=== PATIENT | female | born 1950 | race Caucasian/White ===

== ENCOUNTER → 2019-01-23 15:04 | Outpatient (CLI) | payer MEDICARE, SELFPAY ==
--- NOTE | 2019-01-23 | DI.MG.S_ITS ---
BILATERAL DIGITAL SCREENING MAMMOGRAM 3D/2D WITH CAD WITH AUGMENTATION: 01/23/2019 CLINICAL: Patient presents for routine screening. S/P bilateral augmentation. Comparison is made to exams dated: 11/09/2017 mammogram, 12/03/2014 mammogram - [facility], and 12/21/2007 mammogram - [facility]. There are scattered fibroglandular elements in both breasts. Current study was also evaluated with a Computer Aided Detection (CAD) system. Bilateral breast implants are stable. No significant masses, calcifications, or other findings are seen in either breast. There has been no significant interval change. IMPRESSION: NEGATIVE There is no mammographic evidence of malignancy. A 1 year screening mammogram is recommended. This exam was interpreted at Station ID: [id number]. NOTE: For mammograms, a report in lay terms will be sent to the patient. Approximately 15% of breast malignancies will not be visualized mammographically. In the management of a palpable breast mass, a negative mammogram must not discourage biopsy of a clinically suspicious lesion. Electronically Signed By: Elvira ng/isaiah:01/23/2019 16:18:47 letter sent: Normal Exam ACR BI-RADS Category 1: Negative [id number]
== END ==
PROVIDERS: PCP Family Medicine; Visit Provider Family Medicine
DX: Z12.31 Encounter for screening mammogram for malignant neoplasm of breast (principal); Z98.82 Breast implant status
CPT/HCPCS: 77063; 77067

== ENCOUNTER → 2019-04-03 12:07 | Outpatient (CLI) | payer MEDICARE, SELFPAY ==
--- NOTE | 2019-04-03 12:15 | DI.CT.S_ITS ---
PROCEDURE: CT LUMBAR SPINE WO CON INDICATIONS: Low back pain TECHNIQUE: Noncontrast 3 mm thick sections acquired from the T12 level to the sacrum. Sagittal and coronal reformats were constructed. For radiation dose reduction, the following was used: automated exposure control. Metal suppressing reconstructions were performed. COMPARISON: [facility], , L-SPINE 4V PLUS BENDING, 04/25/2011, 10:23. FINDINGS: Image quality: Diagnostic. Bones: No acute vertebral body compression fractures. No suspicious lytic or blastic bony lesions. Central spinal caliber is of normal overall caliber. No pars defects. Mild levoconvex scoliotic curvature is noted. There is grade 1 retrolisthesis seen at the L2-L3 level. Postoperative changes are seen, with bilateral pedicle screws at the L2, L3, and L4 levels. Anterior fixation hardware can also be seen at L3-L4 and L4-L5. Disc spacers are seen at L3-L4 and L4-L5. There has been removal of portions of the posterior elements. T12-L1: Normal. L1-L2: Mild to moderate loss of disc height is seen. Endplate irregularity is seen. Moderate bilateral neural foraminal narrowing is seen, left worse than right. Mild central canal narrowing is seen. L2-L3: There is moderate to severe loss of disc height is seen. Prominent endplate irregularity and sclerosis can be seen. At least moderate disc bulge is seen, which is eccentric to the left. There is at least moderate bilateral neural foraminal narrowing seen. Moderate central canal narrowing is seen. L3-L4: Postoperative changes are seen this level. No significant neural foraminal or central canal narrowing can be seen. L4-L5: There are postoperative changes seen at this level. No significant neural foraminal or central canal narrowing can be seen. L5-S1: The disc height is well-preserved. Iswq-sj-ferafver facet hypertrophy is seen. Mild generalized disc bulge is seen. Xejg-ls-ivijoqmd bilateral neural foraminal narrowing is seen. No significant central canal narrowing is seen. Soft tissues: No retroperitoneal masses or hematomas. Visualized aorta is normal in caliber. Diverticulosis is seen, without findings of active diverticulitis. IMPRESSION: Unremarkable postoperative change L3-L5. Prominent focal degenerative change is seen at L2-L3. Dictated by: Addison Naylor M.D. on 04/03/2019 at 13:28 Approved by: Addison Naylor M.D. on 04/03/2019 at 13:34
== END ==
PROVIDERS: PCP Family Medicine; Visit Provider Orthopaedic Surgery Orthopaedic Surgery of the Spine
DX: M54.5 Low back pain (principal); M47.816 Spondylosis without myelopathy or radiculopathy, lumbar region
CPT/HCPCS: 72131

== ENCOUNTER → 2019-04-29 16:05 | Outpatient (CLI) | payer MEDICARE, SELFPAY ==
--- NOTE | 2019-04-29 | DI.US.S_ITS ---
PROCEDURE: US ABDOMEN COMPLETE INDICATIONS: Right upper quadrant pain TECHNIQUE: Real-time scanning was performed of the abdominal and retroperitoneal organs, with image documentation. COMPARISON: None. FINDINGS: Liver: Liver is normal in size and homogeneous in echotexture. Hepatic cyst measuring 14 mm. Gallbladder: No gallstones identified. Normal gallbladder wall. No pericholecystic fluid. Negative sonographic Bosch sign. Biliary ducts: Intrahepatic bile ducts are non-dilated. Extrahepatic bile duct caliber measures 7.2 mm. Normal is 6-7 mm or less in diameter, or 10 mm or less post-cholecystectomy. Pancreas: Visualized portions of the pancreas are sonographically normal. Spleen: Spleen is normal in size and homogeneous in echotexture. Kidneys: Kidneys are normal in size and echotexture. Right kidney measures in 10.0 cm long; left kidney measures 8.4 cm long. No hydronephrosis or nephrolithiasis. No solid masses. Aorta: Visualized aorta is normal in caliber at less than 3 cm. Iliacs: Proximal common iliac arteries are normal in caliber at less than 2.5 cm. IVC: Intrahepatic inferior vena cava is patent. Miscellaneous: No free abdominal fluid. IMPRESSION: No source for right upper quadrant pain identified. Dictated by: Frankie JAVIER Interpreted: Antoinette Anderson MD on 04/29/2019 at 16:57 Approved by: Antoinette Anderson MD, PhD on 04/29/2019 at 17:46
== END ==
PROVIDERS: Family Provider Family Medicine; PCP Family Medicine; Visit Provider Physician Assistant
DX: R10.11 Right upper quadrant pain (principal); R19.7 Diarrhea, unspecified
CPT/HCPCS: 76700

== ENCOUNTER → 2019-05-03 13:22 | Outpatient (CLI) | payer MEDICARE, OTHER, SELFPAY | PROVIDERS: Family Provider Family Medicine; PCP Family Medicine; Visit Provider Physician Assistant | DX: R30.0 Dysuria (principal) | CPT/HCPCS: 87077; 87086; 87186 ==

== ENCOUNTER → 2019-08-08 11:48 | Outpatient (CLI) | payer MEDICARE, OTHER, SELFPAY ==
[2019-08-08 12:44] LABS: BUN Creatinine Ratio 17.8 (6-22); Blood Urea Nitrogen 16 mg/dL (7-17); Carbon Dioxide 26 mmol/L (22-32); Chloride 103 mmol/L (98-107); Estimated Glomerular Filt Rate > 60.0 mL/min (>60); Glucose 103 mg/dL (80-110); HEMOLYSIS < 15 (0-50); Potassium 4.4 mmol/L (3.4-5.1); Sodium 141 mmol/L (137-145)
[2019-08-08 15:00] LABS: Vitamin D 25 Hydroxy (D3) 61.9 ng/mL (30.0-100.0)
== END ==
PROVIDERS: PCP Student in an Organized Health Care Education/Training Program; Visit Provider Student in an Organized Health Care Education/Training Program
DX: E55.9 Vitamin D deficiency, unspecified (principal); K52.9 Noninfective gastroenteritis and colitis, unspecified; M54.16 Radiculopathy, lumbar region; Z79.1 Long term (current) use of non-steroidal anti-inflammatories (NSAID); Z79.52 Long term (current) use of systemic steroids; G62.9 Polyneuropathy, unspecified; R21 Rash and other nonspecific skin eruption
CPT/HCPCS: 36415; 80048; 82306; 86787

== ENCOUNTER → 2019-09-09 08:10 | Outpatient (CLI) | payer MEDICARE, SELFPAY ==
--- NOTE | 2019-09-09 08:12 | DI.ECHO.S_ITS ---
[facility]---------+ [facility] +---------+ : : [address] : [address] : : : : [id number] : : : : Phone: [phone]+ Echocardiogram Report + + :Name: BERNABE MOORE Study Date: 09/09/2019 Height: 65 in : :[facility] Weight: 165 lb : : Gender: Female BSA: 1.8 m2 : :: 1950 Age: 69 yrs BP: 124/80 mmHg: :Reason For Study: Mitral Valve- Regurgitation : : Performed By: Zakia Cavanaugh : :Referring: NEVEAH ZAVALA : + + Interpretation Summary Normal left ventricle size with ejection fraction 60-65%. No valvular abnormality. Large circumferential pericardial effusion. There are no echocardiographic indications of cardiac tamponade. Procedure: A two-dimensional transthoracic echocardiogram with color flow and Doppler was performed. The study quality was technically adequate. There is no prior echocardiogram noted for this patient. The patient was in normal sinus rhythm during the exam. The patient had frequent PVCs during the exam. Left Ventricle: The left ventricle is normal in size and wall thickness. The ejection fraction is estimated to be 60-65%. There are no focal wall motion abnormalities. Right Ventricle: The right ventricle is normal in size and function. Atria: Both atria are normal in size. There is no Doppler evidence for an interatrial shunt. Mitral Valve: The mitral valve is normal in structure and function. There is trace mitral regurgitation. Aortic Valve: The aortic valve is not well visualized. The aortic valve is trileaflet. The aortic valve opens well. No aortic regurgitation is present. Tricuspid Valve: The tricuspid valve is normal in structure and function. There is a trace or physiologic amount of tricuspid regurgitation. The right ventricular systolic pressure is estimated to be at least 16 mmHg based on an estimated right atrial pressure of 3 mm Hg. Pulmonic Valve: The pulmonic valve is not well visualized. There is no pulmonic valvular regurgitation. Great Vessels: The aortic root is not well visualized. The ascending aorta could not be visualized. The IVC is of normal diameter and collapses greater than 50% with a sniff. This suggests a low right atrial pressure of 3 mm Hg. Pericardium/ Pleura There is a large pericardial effusion that is circumferential. There are no echocardiographic indications of cardiac tamponade. MMode/2D Measurements & Calculations LVIDd: 4.6 cm Ao Arch Diam (Prox Trans): 2.3 cm LVIDs: 2.4 cm FS: 46.3 % IVSd: 0.70 cm LVPWd: 0.66 cm LV arrieta. diameter/BSA (cm/m^2): 2.5 LV sys. diameter/BSA (cm/m^2): 1.3 LA A2 area: 16.8 cm2 RA long axis: 4.5 cm LA A4 area: 15.1 cm2 RA area: 12.5 cm2 LA length (vol): 4.7 cm RA vol: 29.6 ml LA vol: 45.5 ml RA : 16.2 ml/m2 LA vol index: 25.0 ml/m2 IVC diam: 1.5 cm RVD1 (basal): 3.2 cm RVD2 (mid): 2.9 cm TAPSE: 2.4 cm Doppler Measurements & Calculations Ao V2 max: 119.9 cm/sec LVOT Max Zen: 100.0 cm/sec Ao V2 mean: 87.0 cm/sec LV V1 max P.0 mmHg Ao max P.7 mmHg LV V1 VTI: 25.7 cm Ao mean P.3 mmHg sev ratio: 0.96 Ao V2 VTI: 26.9 cm MV E max zen: 89.4 cm/sec TR max zen: 185.3 cm/sec MV A max zen: 86.8 cm/sec TR max P.7 mmHg MV E/A: 1.0 PA V2 max: 99.4 cm/sec MV dec time: 0.20 sec PA V2 mean: 71.1 cm/sec MV P1/2t: 59.0 msec PA mean P.2 mmHg PA pr(Accel): 4.3 mmHg PA Accel Time: 0.18 sec MV P1/2t max zen: 89.3 cm/sec MVA(P1/2t): 3.7 cm2 Electronically signed by: Scarlett Haynes on Reading Physician:09/09/2019 05:41 PM
--- NOTE | 2019-09-09 09:20 | PM.TREADMILL ---
Cardiac Stress Test Report Referral & Results Date Patient Seen: 09/09/19 Requesting provider: Faisal Pond Indication: Chest discomfort Rest ECG: Unremarkable although frequent PVCs Procedure Note: Today following both written and verbal informed consent, the patient was exercised according to a standard [facility] protocol. The patient exercised for a total of 8 minutes 41 seconds achieving a maximum heart rate of 169. Patient's maximum systolic blood pressure was 188. This was an estimated 10.1 MET's. Patient did have frequent PVCs as above but these disappeared once heart rate head about 130 and higher. They return when heart rate dipped below 130 as well in recovery No ST-T segment changes identified Somewhat tachycardic quickly but overall normal heart rate and blood pressure response Functional aerobic impairment well off the scale. I estimate her exercise capacity to be equal that of an active 44-year-old. Impression: No ECG evidence of ischemia Amazing exercise capacity Please note: Actual ECG tracings can be found in the PACS system.
== END ==
PROVIDERS: PCP Student in an Organized Health Care Education/Training Program; Referring Provider Student in an Organized Health Care Education/Training Program; Visit Provider Student in an Organized Health Care Education/Training Program
DX: I34.1 Nonrheumatic mitral (valve) prolapse (principal); I20.8 Other forms of angina pectoris; I31.3 Pericardial effusion (noninflammatory); R07.89 Other chest pain
CPT/HCPCS: 93016; 93017; 93018; 93306

== ENCOUNTER → 2019-09-10 15:15 | Outpatient (CLI) | payer MEDICARE, SELFPAY ==
--- NOTE | 2019-09-10 15:19 | DI.RAD.S_ITS ---
PROCEDURE: XR CHEST 2V INDICATIONS: Eval pericardial effusion seen on echo TECHNIQUE: 2 views of the chest were acquired. COMPARISON: None. FINDINGS: Surgical changes and devices: Imaged lumbar spinal fusion hardware. Lungs and pleura: Lungs are clear. No pleural effusions or pneumothorax. Mediastinum: Mediastinal contours are normal. Heart size is normal. Bones and chest wall: No suspicious bony abnormalities. Soft tissues appear unremarkable. IMPRESSION: Chest without acute cardiopulmonary abnormalities. Dictated by: Usman Titus M.D. on 09/10/2019 at 17:24 Approved by: Usman Titus M.D. on 09/10/2019 at 17:24
[2019-09-10 16:01] LABS: Add Manual Diff / Slide Review NO; Basophils Absolute Auto 0 /uL (0-100); Basophils Percent Auto 0.7 % (0-2); Eosinophils Absolute Auto 0 /uL (0-450); Hematocrit 44.9 % (36-46); Hemoglobin 15.4 g/dL (12.0-16.0); Lymphocytes Absolute Auto 1000 /uL (1100-4500); Lymphocytes Percent Auto 21.5 % (25-40); Mean Corpuscular HGB Conc 34.4 % (30-36); Mean Corpuscular Hemoglobin 32.2 PG (26-34); Mean Corpuscular Volume 93.5 fL (80-100); Monocytes Absolute Auto 400 /uL (0-900); Monocytes Percent Auto 9.5 % (3-14); Neutrophils Absolute Auto 3100 /uL (1500-7000); Neutrophils Percent Auto 67.3 % (50-75); Platelet Count 212 X10^3/uL (150-400); Red Cell Distribution Width 13.5 % (11.6-14.8); White Blood Cell Count 4.6 X10^3/uL (4.5-11.0)
[2019-09-10 16:17] LABS: Erythrocyte Sedimentation Rate 4 MM/HR (0-20)
[2019-09-10 16:40] LABS: C-Reactive Protein Quant < 0.5 mg/dL (<1.0)
[2019-09-10 16:45] LABS: TSH w/ Reflex to FT4 1.86 uIU/mL (0.47-4.68)
[2019-09-13 16:12] LABS: ANA Screen, IFA NEGATIVE (NEGATIVE)
== END ==
PROVIDERS: PCP Student in an Organized Health Care Education/Training Program; Referring Provider Student in an Organized Health Care Education/Training Program; Visit Provider Student in an Organized Health Care Education/Training Program
DX: I31.3 Pericardial effusion (noninflammatory) (principal); K52.9 Noninfective gastroenteritis and colitis, unspecified
CPT/HCPCS: 36415; 71046; 84443; 85025; 85651; 86038; 86140

== ENCOUNTER → 2019-09-12 17:37 | Outpatient (CLI) | payer MEDICARE, OTHER, SELFPAY ==
[2019-09-12 18:26] LABS: Add Manual Diff / Slide Review NO; Basophils Absolute Auto 0 /uL (0-100); Basophils Percent Auto 0.8 % (0-2); Eosinophils Absolute Auto 100 /uL (0-450); Eosinophils Percent Auto 1.5 % (2-4); Hematocrit 47.5 % (36-46); Hemoglobin 16.1 g/dL (12.0-16.0); Lymphocytes Absolute Auto 1100 /uL (1100-4500); Lymphocytes Percent Auto 23.7 % (25-40); Mean Corpuscular HGB Conc 33.8 % (30-36); Mean Corpuscular Hemoglobin 31.8 PG (26-34); Mean Corpuscular Volume 94.1 fL (80-100); Monocytes Absolute Auto 500 /uL (0-900); Monocytes Percent Auto 9.9 % (3-14); Neutrophils Absolute Auto 3100 /uL (1500-7000); Neutrophils Percent Auto 64.1 % (50-75); Platelet Count 225 X10^3/uL (150-400); Red Blood Cell Count 5.04 X10^6/uL (4.0-5.2); Red Cell Distribution Width 13.7 % (11.6-14.8); White Blood Cell Count 4.8 X10^3/uL (4.5-11.0)
[2019-09-12 19:01] LABS: Erythrocyte Sedimentation Rate 2 MM/HR (0-20)
[2019-09-12 19:29] LABS: C-Reactive Protein Quant < 0.5 mg/dL (<1.0)
== END ==
PROVIDERS: PCP Student in an Organized Health Care Education/Training Program; Referring Provider Internal Medicine Cardiovascular Disease; Visit Provider Internal Medicine Cardiovascular Disease
DX: I31.3 Pericardial effusion (noninflammatory) (principal); J06.9 Acute upper respiratory infection, unspecified
CPT/HCPCS: 36415; 85025; 85651; 86140

== ENCOUNTER → 2019-11-22 09:00 | Outpatient (CLI) | payer MEDICARE, SELFPAY ==
--- NOTE | 2019-11-22 | DI.ECHO.S_ITS ---
[facility] +---------+ : : [address] : : : [address] : : : : [place], : : : : [place] [address] : : : : Phone: [phone] + [facility] Echocardiogram Report + + :Name: BERNABE MOORE Study Date: 11/22/2019 Height: 65 in : :[facility] Weight: 150 lb : : Gender: Female BSA: 1.8 m2 : :: 1950 Age: 69 yrs BP: 112/80 mmHg: :Reason For Study: Pericardial Effusion / Pre-op : : Performed By: Victoria Page : :Referring: UNSPECIFIED : + + Interpretation Summary 1) Normal left ventricular size, thickness, and systolic function (EF about 55%). 2) Normal right ventricular size and function. 3) No significant valvular abnormalities. 4) There is a large pericardial effusion that is circumferential. No obvious Echo and doppler evidence of tamponade. 5) Compared to the Echo done 10/21/2019, no significant change. Procedure: A two-dimensional transthoracic echocardiogram with color flow and Doppler was performed. The study quality was technically adequate. Comparison is made with the echocardiogram of 10/21/2019. The heart rate ranged between 58-86 bpm during the study. Left Ventricle: There is normal left ventricular wall thickness. The left ventricle is normal in size. Left ventricular ejection fraction is estimated to be 55 +/- 5%. There are no focal wall motion abnormalities. Right Ventricle: The right ventricle is normal in size and function. Atria: Both atria are mildly dilated. There is no Doppler evidence for an interatrial shunt. Mitral Valve: The mitral valve leaflets appear mildly thickened, but open well. There is trace mitral regurgitation. Aortic Valve: The aortic valve is trileaflet. The aortic valve opens well. No aortic regurgitation is present. Tricuspid Valve: The tricuspid valve is normal in structure and function. There is a trace or physiologic amount of tricuspid regurgitation. Pulmonary artery pressures cannot be estimated because of the lack of a measurable TR jet velocity. Pulmonic Valve: The pulmonic valve is not well seen, but is grossly normal. Great Vessels: The aortic root is normal size. The ascending aorta is normal in size. The pulmonary artery is normal size. The IVC is dilated (diameter is greater than 2.1 cm) yet it collapses greater than 50% with a sniff. This suggests a right atrial pressure of 8 mm Hg. Pericardium/ Pleura There is a large pericardial effusion that is circumferential. There is no pleural effusion. MMode/2D Measurements & Calculations LVIDd: 5.3 cm LVOT diam: 2.0 cm LVIDs: 3.5 cm Ao root diam: 3.4 cm IVSd: 0.56 cm asc Aorta Diam: 2.6 cm LVPWd: 0.71 cm LV arrieta. diameter/BSA (cm/m^2): 3.0 LV sys. diameter/BSA (cm/m^2): 2.0 FS: 34.7 % LA A2 area: 21.1 cm2 RA long axis: 5.1 cm LA A4 area: 20.1 cm2 RA area: 19.3 cm2 LA length (vol): 5.3 cm RA vol: 61.6 ml LA vol: 67.3 ml RA : 35.2 ml/m2 LA vol index: 38.4 ml/m2 RVD1 (basal): 3.6 cm IVC diam: 2.4 cm TAPSE: 1.8 cm Doppler Measurements & Calculations Ao V2 max: 134.6 cm/sec LVOT Max Zen: 101.3 cm/sec Ao V2 mean: 92.5 cm/sec LV V1 max P.1 mmHg Ao V2 VTI: 29.3 cm LV V1 VTI: 21.1 cm Ao max P.3 mmHg Ao mean P.8 mmHg BETSY(I,D): 2.3 cm2 MV E max zen: 67.1 cm/sec BETSY(V,D): 2.4 cm2 MV A max zen: 77.6 cm/sec BETSY indexed to BSA (cm^2/m^2): 1.3 MV E/A: 0.86 sev ratio: 0.72 MV dec time: 0.17 sec PA V2 max: 81.6 cm/sec PA V2 mean: 60.1 cm/sec PA mean P.6 mmHg PA pr(Accel): 18.5 mmHg SV(LVOT): 68.6 ml Reading Physician:12:12 PM
== END ==
PROVIDERS: PCP Student in an Organized Health Care Education/Training Program; Referring Provider Specialist; Visit Provider Specialist
DX: I31.3 Pericardial effusion (noninflammatory) (principal)
CPT/HCPCS: 93306

== ENCOUNTER → 2020-02-14 13:58 | Outpatient (CLI) | payer MEDICARE, SELFPAY ==
--- NOTE | 2020-02-14 14:01 | DI.RAD.S_ITS ---
This blank DEXA report has been sent in error by the PACS system. The correct and complete report will be forthcoming in 1-2 days. Thank you for your patience and understanding. COMPARISON: None. Dictated by: Víctor Whalen M.D. on 02/14/2020 at 14:46 Approved by: Víctor Whalen M.D. on 02/14/2020 at 14:46
== END ==
PROVIDERS: PCP Student in an Organized Health Care Education/Training Program; Referring Provider Student in an Organized Health Care Education/Training Program; Visit Provider Student in an Organized Health Care Education/Training Program
DX: M85.832 Other specified disorders of bone density and structure, left forearm (principal); Z78.0 Asymptomatic menopausal state; K92.9 Disease of digestive system, unspecified; E55.9 Vitamin D deficiency, unspecified
CPT/HCPCS: 77080

== ENCOUNTER → 2020-11-20 06:43 | Outpatient (CLI) | payer MEDICARE, SELFPAY ==
--- NOTE | 2020-11-20 | DI.MRI.S_ITS ---
PROCEDURE: MR HIP RT WO CON INDICATIONS: Arthrodesis status TECHNIQUE: Noncontrast coronal T1 spin echo and STIR through the bony pelvis. Coronal and axial T2 fast spin echo with fat saturation, sagittal T1 spin echo, and oblique axial T2 fast spin echo with fat saturation through the hip. COMPARISON: None. FINDINGS: Image quality: Excellent. Bones and joints: Asymmetric moderate right hip joint osteoarthritic changes are seen with joint space narrowing, subchondral sclerosis and marginal osteophyte formation. Prominence of right femoral head neck junction is seen which can be seen associated with CAM type femoral acetabular impingement. No fracture or dislocation. No evidence of avascular necrosis of femoral head. Moderate right hip joint effusion is noted. No gross intra-articular loose body. Tendons and ligaments: There is suggestion of sprain/low-grade partial-thickness tear involving lateral portion of right obturator externus muscle at the level of right femoral neck/lesser trochanter. The gluteus medius and minimus tendinosis is seen at their insertion on greater trochanter., without associated muscle atrophy. The nearby proximal iliotibial band also appears intact. The iliopsoas tendon appears intact, without adjacent bursal fluid collections or evidence for impingement syndrome. The origin of the hamstring tendon is intact at the ischial tuberosity, as well as the associated sacrotuberous ligament. The straight and reflected heads of the rectus femoris muscle origin appear intact, as well as the conjoint tendon. The ligamentum teres appears intact where visualized. Labrum and cartilage: Thinning of articulating cartilages of femoral head is seen. Contour irregularity involving superior anterior right hip labrum is seen with adjacent subcortical cyst formation suggestive of superior anterior right hip labral tear. The alpha angle of the femur is within normal limits at less than 55 degrees. Soft tissues: Visualized muscles demonstrate normal bulk and internal signal. Quadratus femoris muscle demonstrates no internal edema to suggest ischiofemoral impingement. The proximal sciatic neurovascular bundle appears normal adjacent to the hamstring tendons. No free pelvic fluid. Bladder wall thickness is normal. Genitourinary structures and bowel loops appear normal where visualized. IMPRESSION: 1. Asymmetric right worse than left bilateral hip joint osteoarthritis. No fracture or dislocation. No evidence of avascular necrosis of femoral head. Moderate amount of joint fluid, no gross loose body. 2. Prominence of right femoral head neck junction which can be seen associated with CAM type femoral acetabular impingement. 3. Suggestion of superior anterior right hip labral tear. 4. Tendinosis and low-grade partial-thickness tear involving right gluteus medius and minimus tendons at their insertion on greater trochanter. Muscle strain/low-grade partial-thickness tear involving right obturator externus muscle lateral portion near femoral neck/lesser trochanter. Dictated by: Derek Ruiz M.D. on 11/20/2020 at 10:04 Approved by: Derek Ruiz M.D. on 11/20/2020 at 10:46
== END ==
PROVIDERS: PCP Student in an Organized Health Care Education/Training Program; Referring Provider Orthopaedic Surgery; Visit Provider Orthopaedic Surgery
DX: M54.16 Radiculopathy, lumbar region (principal); S39.013A Strain of muscle, fascia and tendon of pelvis, initial encounter; M25.551 Pain in right hip; Z98.1 Arthrodesis status; M16.0 Bilateral primary osteoarthritis of hip
CPT/HCPCS: 73721

== ENCOUNTER → 2020-11-23 08:13 | Outpatient (CLI) | payer MEDICARE, SELFPAY ==
[2020-11-23 09:01] LABS: Prothrombin Time 11.3 SECONDS (10.1-12.7)
[2020-11-23 09:40] LABS: Platelet Count 260 X10^3/uL (150-400)
== END ==
PROVIDERS: PCP Student in an Organized Health Care Education/Training Program; Referring Provider Orthopaedic Surgery; Visit Provider Orthopaedic Surgery
DX: Z01.810 Encounter for preprocedural cardiovascular examination (principal)
CPT/HCPCS: 36415; 85049; 85610

== ENCOUNTER → 2020-11-30 08:04 | Outpatient (CLI) | payer MEDICARE, SELFPAY ==
[2020-11-30 09:36] VITALS: BP 133/61; PULSE 78; RESP 18; O2SAT 100
[2020-11-30 09:41] VITALS: BP 121/58; PULSE 73; RESP 18; O2SAT 99
[2020-11-30 09:56] VITALS: BP 109/55; PULSE 77; RESP 18; O2SAT 99
[2020-11-30 10:04] VITALS: BP 119/61; RESP 20; O2SAT 98
--- NOTE | 2020-11-30 10:05 | DI.CT.S_ITS ---
PROCEDURE: CT LUMBAR SPINE W CON INDICATIONS: lower back pain TECHNIQUE: After the intrathecal administration of 10 mL intrathecal contrast, 3 mm thick sections acquired from T12 to the sacrum. Sagittal and coronal reformats were then constructed. For radiation dose reduction, the following was used: automated exposure control. COMPARISON: [facility], CT, CT LUMBAR SPINE WO CON, 04/03/2019, 12:16. FINDINGS: Image quality: Excellent. Bones: No fracture identified. Multilevel spondylosis/endplate changes. Diffuse facet arthropathy. Postsurgical changes related to posterior spinal fixation from L3-L4 with pedicle screws and paraspinal rods. Posterior decompression at L4-L5 from left-sided laminotomy. There is also interbody cage grafts seen at L3-L4 and L4-L5, and anterior retaining plate and screws. 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 The appearance is unchanged. Soft tissues: No retroperitoneal masses. Visualized aorta demonstrates normal caliber. T12-L1: Normal appearance. L1-L2: Mild canal narrowing. Lateral recesses appear grossly patent. Mild to moderate bilateral foraminal narrowing. This appears unchanged. L2-L3: Mild canal narrowing. Partial effacement of both lateral recesses with bilaterally symmetric appearance. Mild bilateral foraminal narrowing, with unchanged appearance. L3-L4: No canal stenosis. Lateral recesses appear grossly patent. No definite foraminal stenoses. L4-L5: No residual canal stenosis. Lateral recesses appear patent. Mild bilateral foraminal narrowing, unchanged L5-S1: Minimal canal narrowing. Partial effacement of both lateral recesses with bilaterally symmetric appearance. No foraminal stenosis. Miscellaneous: Nerve roots appear unremarkable throughout. No nerve root clumping to suggest arachnoiditis. IMPRESSION: Postsurgical and chronic spondylitic changes as above. Overall, no definite interval progression since prior study dated 04/03/19 although mildly suboptimal comparison given exam technique differences (no intrathecal contrast on the prior study). Of note, severe disc degeneration seen at the superior unfused segment of L2-L3, as before. No high-grade residual canal stenosis. Diffuse mild to moderate bilateral foraminal narrowing as detailed above by spinal level. Dictated by: Wilmer Montero M.D. on 11/30/2020 at 11:12 Approved by: Wilmer Montero M.D. on 11/30/2020 at 11:41
[2020-11-30 10:09] VITALS: BP 128/62; PULSE 83; RESP 20; O2SAT 97
== END ==
PROVIDERS: PCP Student in an Organized Health Care Education/Training Program; Referring Provider Orthopaedic Surgery; Visit Provider Orthopaedic Surgery
DX: M54.5 Low back pain; M51.36 Other intervertebral disc degeneration, lumbar region; M48.061 Spinal stenosis, lumbar region without neurogenic claudication; M47.816 Spondylosis without myelopathy or radiculopathy, lumbar region; Z98.1 Arthrodesis status
CPT/HCPCS: 72132

== ENCOUNTER 2020-11-30 08:07 | Outpatient (CLI) | payer MEDICARE, SELFPAY ==
--- NOTE | 2020-11-30 | DI.RAD.S_ITS ---
PROCEDURE: FL INJECT SPINE FOR CT MYELO INDICATIONS: myelogram COMPARISON: None. TECHNIQUE: The indications, alternatives, benefits, risks and complications of the procedure were explained to the patient. Written informed consent was obtained and placed in the chart. The patient was placed in a prone position on the fluoroscopy table, and a level was chosen for percutaneous access under fluoroscopic guidance. The skin was prepped and draped in a sterile fashion. After local anaesthetic, a spinal needle was then used to enter the intrathecal space, with return of clear cerebrospinal fluid. 9 mL of Isovue M-300 were administered intrathecally under fluoroscopic visualization. The needle was then withdrawn, and a bandage applied to the puncture site. Fluoroscopic spot films were then acquired in various positions. FINDINGS: Standing frontal, lateral, and oblique views demonstrate no significant central canal stenoses. Access level: L4-L5 Medications: 1% lidocaine for local anaesthesia. Complications: None. Patient was transferred to CT for subsequent CT myelogram. IMPRESSION: Successful fluoroscopically guided administration of iodinated contrast into the lumbar spine central canal for CT myelogram. Dictated by: Wilmer Montero M.D. on 11/30/2020 at 12:58 Approved by: Wilemr Montero M.D. on 11/30/2020 at 12:58
[2020-11-30 08:41] VITALS: BMI 23.3
[2020-11-30 09:25] LABS: Add Manual Diff / Slide Review NO; Basophils Absolute Auto 0 /uL (0-100); Basophils Percent Auto 0.3 % (0-2); Eosinophils Absolute Auto 100 /uL (0-450); Eosinophils Percent Auto 1.9 % (2-4); Hematocrit 44.2 % (36-46); Hemoglobin 15.3 g/dL (12.0-16.0); Lymphocytes Absolute Auto 1000 /uL (1100-4500); Lymphocytes Percent Auto 23.4 % (25-40); Mean Corpuscular HGB Conc 34.6 % (30-36); Mean Corpuscular Hemoglobin 32.4 PG (26-34); Mean Corpuscular Volume 93.6 fL (80-100); Monocytes Absolute Auto 500 /uL (0-900); Monocytes Percent Auto 11.9 % (3-14); Neutrophils Absolute Auto 2500 /uL (1500-7000); Neutrophils Percent Auto 62.5 % (50-75); Platelet Count 202 X10^3/uL (150-400); Red Blood Cell Count 4.72 X10^6/uL (4.0-5.2); Red Cell Distribution Width 14.2 % (11.6-14.8); White Blood Cell Count 4.1 X10^3/uL (4.5-11.0)
[2020-11-30 10:19] LABS: Prothrombin Time 11.7 SECONDS (10.1-12.7)
[2020-11-30 11:05] VITALS: BP 113/60; PULSE 65; RESP 14; TEMP 37.4; O2SAT 99
[2020-11-30 11:35] VITALS: BP 120/77; PULSE 68; RESP 14; TEMP 36.7; O2SAT 98
[2020-11-30 12:05] VITALS: BP 120/72; PULSE 62; RESP 14; TEMP 37.1; O2SAT 99
[2020-11-30 13:59] VITALS: BP 127/70; PULSE 58; RESP 13; TEMP 36.3; O2SAT 98
== END 2020-11-30 14:08 | disposition home or self-care (01) ==
PROVIDERS: PCP Student in an Organized Health Care Education/Training Program; Referring Provider Orthopaedic Surgery; Visit Provider Orthopaedic Surgery
DX: M54.5 Low back pain (principal); M25.551 Pain in right hip; M54.16 Radiculopathy, lumbar region; M51.36 Other intervertebral disc degeneration, lumbar region; M48.061 Spinal stenosis, lumbar region without neurogenic claudication; M47.816 Spondylosis without myelopathy or radiculopathy, lumbar region; Z98.1 Arthrodesis status; Z01.810 Encounter for preprocedural cardiovascular examination
CPT/HCPCS: 36415; 62284; 72132; 77003; 85025; 85610

== ENCOUNTER → 2021-01-27 16:06 | Outpatient (CLI) | payer MEDICARE, SELFPAY ==
--- NOTE | 2021-01-27 | DI.MRI.S_ITS ---
PROCEDURE: MR SHOULDER LT WO CON INDICATIONS: LEFT SHOULDER TENDINITIS, PAIN TECHNIQUE: Noncontrast oblique coronal T2 fast spin echo with fat saturation, oblique sagittal T1 spin echo and T2 fast spin echo with fat saturation, axial T1 spin echo and T2 fast spin echo with fat saturation through the shoulder. COMPARISON: [facility], CR, XR SHOULDER 2+ VIEWS BILATERAL, 11/19/2020, 14:13. FINDINGS: Image quality: Excellent. Rotator cuff: Mild T2 signal elevation throughout the supraspinatus and infraspinatus tendons at the humeral insertion sites, indicating tendinopathy. Superimposed low-grade partial-thickness intrasubstance tears of the posterior supraspinatus and anterior infraspinatus tendons at the humeral insertion sites. Subscapularis and teres minor tendons are intact. The supraspinatus, infraspinatus, and subscapularis tendons appear intact throughout. Sagittal images demonstrate no muscle atrophy. Bones and bursae: No bone marrow contusions or fractures. Moderate acromioclavicular joint degeneration. The acromion demonstrates conventional anatomy, without an os acromiale. No pathologic subacromial-subdeltoid or subcoracoid bursal fluid is present. Capsule and soft tissues: Labrum is grossly unremarkable The long head of the biceps tendon demonstrates normal location and morphology. The rotator interval appears normal, without fibrosis. The coracohumeral ligament is normal in thickness. IMPRESSION: 1. Supraspinatus and infraspinatus tendinopathy with superimposed low-grade partial-thickness tears. No full-thickness rotator cuff tear. 2. Acromioclavicular joint osteoarthritis. Dictated by: Dewayne Bocanegra M.D. on 01/28/2021 at 9:20 Approved by: Dewayne Bocnaegra M.D. on 01/28/2021 at 9:29
== END ==
PROVIDERS: PCP Student in an Organized Health Care Education/Training Program; Referring Provider Orthopaedic Surgery Foot and Ankle Surgery; Visit Provider Orthopaedic Surgery Foot and Ankle Surgery
DX: M77.8 Other enthesopathies, not elsewhere classified (principal); M19.012 Primary osteoarthritis, left shoulder; M75.111 Incomplete rotator cuff tear or rupture of right shoulder, not specified as traumatic
CPT/HCPCS: 73221

== ENCOUNTER → 2021-08-07 09:06 | Outpatient (CLI) | payer MEDICARE, SELFPAY ==
[2021-08-07 09:49] LABS: Add Manual Diff / Slide Review NO; Basophils Absolute Auto 0 /uL (0-100); Basophils Percent Auto 0.6 % (0-2); Eosinophils Absolute Auto 100 /uL (0-450); Eosinophils Percent Auto 2.3 % (2-4); Hematocrit 41.8 % (36-46); Hemoglobin 14.3 g/dL (12.0-16.0); Lymphocytes Absolute Auto 1200 /uL (1100-4500); Lymphocytes Percent Auto 26.9 % (25-40); Mean Corpuscular HGB Conc 34.2 % (30-36); Mean Corpuscular Hemoglobin 31.6 PG (26-34); Mean Corpuscular Volume 92.5 fL (80-100); Monocytes Absolute Auto 500 /uL (0-900); Monocytes Percent Auto 11.9 % (3-14); Neutrophils Absolute Auto 2500 /uL (1500-7000); Neutrophils Percent Auto 58.3 % (50-75); Platelet Count 273 X10^3/uL (150-400); Red Blood Cell Count 4.51 X10^6/uL (4.0-5.2); Red Cell Distribution Width 13.7 % (11.6-14.8); White Blood Cell Count 4.3 X10^3/uL (4.5-11.0)
[2021-08-07 10:00] LABS: BUN Creatinine Ratio 12.9 (6-22); Blood Urea Nitrogen 11 mg/dL (7-17); Calcium 9.1 mg/dL (8.4-10.2); Carbon Dioxide 30 mmol/L (22-32); Chloride 107 mmol/L (98-107); Cholesterol 212 mg/dL (140-199); Estimated Glomerular Filt Rate > 60.0 mL/min (>60); Glucose 86 mg/dL (80-110); HDL Cholesterol 54 mg/dL (40-60); HEMOLYSIS < 15 (0-50); LDL Cholesterol Calculated 135 mg/dL (<100); Potassium 4.2 mmol/L (3.4-5.1); Sodium 140 mmol/L (137-145); Triglycerides 114 mg/dL (35-150)
== END ==
PROVIDERS: PCP Student in an Organized Health Care Education/Training Program; Referring Provider Internal Medicine Cardiovascular Disease; Visit Provider Internal Medicine Cardiovascular Disease
DX: I49.3 Ventricular premature depolarization (principal); Z00.00 Encounter for general adult medical examination without abnormal findings
CPT/HCPCS: 36415; 80048; 80061; 85025

== ENCOUNTER → 2021-10-18 14:14 | Outpatient (CLI) | payer MEDICARE, OTHER, SELFPAY ==
--- NOTE | 2021-10-18 | DI.MG.S_ITS ---
BILATERAL DIGITAL SCREENING MAMMOGRAM 3D/2D WITH CAD WITH AUGMENTATION: 10/18/2021 CLINICAL: Routine screening. Comparison is made to exams dated: 01/23/2019 mammogram, 11/09/2017 mammogram, and 12/03/2014 mammogram - [facility]. There are scattered fibroglandular elements in both breasts. Current study was also evaluated with a Computer Aided Detection (CAD) system. Bilateral breast implants are stable. There are benign calcifications in both breasts. No significant masses, calcifications, or other findings are seen in either breast. There has been no significant interval change. IMPRESSION: BENIGN There is no mammographic evidence of malignancy. A 1 year screening mammogram is recommended. This exam was interpreted at Station ID: [id number]. NOTE: For mammograms, a report in lay terms will be sent to the patient. Approximately 15% of breast malignancies will not be visualized mammographically. In the management of a palpable breast mass, a negative mammogram must not discourage biopsy of a clinically suspicious lesion. Electronically Signed By: Usman romo/isaiah:10/18/2021 18:04:22 letter sent: Normal Exam ACR BI-RADS Category 2: Benign Finding(s) 3342F
== END ==
PROVIDERS: PCP Student in an Organized Health Care Education/Training Program; Referring Provider Student in an Organized Health Care Education/Training Program; Visit Provider Student in an Organized Health Care Education/Training Program
DX: Z12.31 Encounter for screening mammogram for malignant neoplasm of breast (principal)
CPT/HCPCS: 77063; 77067

== ENCOUNTER → 2021-11-19 13:40 | Outpatient (CLI) | payer MEDICARE, OTHER, SELFPAY ==
[2021-11-19 14:26] LABS: COVID19 -Nasal RAPID Negative (Negative)
== END ==
PROVIDERS: PCP Student in an Organized Health Care Education/Training Program; Visit Provider Family Medicine Sleep Medicine
DX: Z20.822 Contact with and (suspected) exposure to COVID-19 (principal)
CPT/HCPCS: 87635; C9803

== ENCOUNTER → 2021-11-22 15:21 | Outpatient (CLI) | payer MEDICARE, OTHER, SELFPAY ==
--- NOTE | 2021-11-22 18:29 | DI.NM.S_ITS ---
DATE OF SERVICE: 11/22/2021 PROCEDURE PERFORMED: Exercise treadmill stress test without imaging. ORDERING PROVIDER: Dr. Jonathan Villasenor. INDICATIONS: The patient is a 71-year-old female with a history of pericardial effusion requiring a pericardial window, now with recurrent palpitations and atypical chest discomfort. FINDINGS: 1. The patient was able to exercise for 9 minutes, 6 seconds on a standard Kanu protocol suggesting very good exercise capacity with an JAMIE of -26%, achieving 10.1 METs. 2. She had a normal heart rate and blood pressure response to exercise, achieving a maximum heart rate of 154 BPM (102% of her predicted maximum). 3. She had no chest discomfort or other anginal symptoms. 4. Her resting ECG shows sinus bradycardia with fairly normal ST segments. With exercise, there is significant motion artifact that limits the ability to interpret the ST segments, but there is no obvious ST-segment deviation on the immediate post stress tracings. There were no obvious arrhythmias. IMPRESSION: 1. Probable normal exercise treadmill stress test for ischemia although was slightly reduced sensitivity because of considerable motion artifact. 2. Very good exercise capacity without angina or obvious arrhythmias. Queenie Frank - /natalie/lc doc#: [id number]/job#: [id number] dd: 11/22/2021 16:46:00 dt: 11/22/2021 18:04:00 DICTATING MD/COPIES TO: Yusuf Castro MD; Lanie Villasenor MD COPIES MNE: REHANA;
--- NOTE | 2022-01-06 | DI.ECHO.S_ITS ---
[facility]---------+ [facility] +---------+ : : [address] : [address] [address] : : : : [id number] : : : : Phone: [phone]---------+ Echocardiogram Report + + :Name: BERNABE MOORE Study Date: 01/06/2022 Height: 65 in : :[facility] ReadingLocation: Weight: 130 lb : : Gender: Female BSA: 1.6 m2 : :: 1950 Age: 71 yrs BP: 122/79 mmHg: :Reason For Study: CHEST PAIN : :Ordering Physician: ANYI, : :SOLA Performed By: Zakia Cavanaugh : :Referring: SOLA VILLASENOR : + + Interpretation Summary 1) Normal left ventricular thickness, size, wall motion, and systolic function (EF 60-65%). 2) Normal right ventricular size and function. 3) No significant valvular abnormalities. 4) There is a small pericardial effusion noted. There are no echocardiographic or Doppler indications for cardiac tamponade. 5) Compared to the Echo done 10/03/2019, pericardial effusion has decreased from large to small on this study. Procedure: A two-dimensional transthoracic echocardiogram with color flow and Doppler was performed. The study quality was technically adequate. Comparison is made with the echocardiogram of 10/03/2019. The patient was in sinus bradycardia with heart rates between 59-64 bpm during the exam. Left Ventricle: The left ventricle is normal in size and wall thickness. The ejection fraction is estimated to be 60-65%. Left ventricular systolic function appears normal without focal wall motion abnormalities. Right Ventricle: The right ventricle is normal in size and function. Atria: The left atrial size is normal. Right atrial size is normal. There is no Doppler evidence for an interatrial shunt. Mitral Valve: The mitral valve is normal in structure and function. There is trace mitral regurgitation. Aortic Valve: The aortic valve opens well. There is no aortic valve stenosis. No aortic regurgitation is present. Tricuspid Valve: The tricuspid valve is normal in structure and function. There is trace tricuspid regurgitation. Pulmonic Valve: The pulmonic valve is not well visualized. There is no pulmonic valvular regurgitation. Great Vessels: The aortic root is normal size. The ascending aorta could not be visualized. The IVC is dilated (diameter is greater than 2.1 cm) yet it collapses greater than 50% with a sniff. This suggests a right atrial pressure of 8 mm Hg. Pericardium/ Pleura There is a small pericardial effusion noted. There are no echocardiographic or Doppler indications for cardiac tamponade. There is no pleural effusion. MMode/2D Measurements & Calculations LVIDd: 4.4 cm LVOT diam: 2.2 cm LVIDs: 2.8 cm Ao root diam: 2.6 cm FS: 36.4 % Ao Arch Diam (Prox Trans): 2.4 cm IVSd: 0.66 cm LVPWd: 0.81 cm LV arrieta. diameter/BSA (cm/m^2): 2.7 LV sys. diameter/BSA (cm/m^2): 1.7 LA A2 area: 13.8 cm2 RA long axis: 5.0 cm LA A4 area: 15.5 cm2 RA area: 15.2 cm2 LA length (vol): 5.3 cm RA vol: 39.0 ml LA vol: 34.6 ml RA : 23.7 ml/m2 LA vol index: 21.0 ml/m2 IVC diam: 2.3 cm RVD1 (basal): 2.7 cm RVD2 (mid): 2.3 cm TAPSE: 1.8 cm Doppler Measurements & Calculations Ao V2 max: 150.4 cm/sec LVOT Max Zen: 110.9 cm/sec Ao V2 mean: 94.5 cm/sec LV V1 max P.9 mmHg Ao max P.0 mmHg LV V1 VTI: 25.9 cm Ao mean P.2 mmHg BETSY(I,D): 3.0 cm2 Ao V2 VTI: 32.1 cm BETSY(V,D): 2.7 cm2 sev ratio: 0.81 BETSY indexed to BSA (cm^2/m^2): 1.8 MV E max zen: 70.7 cm/sec PA V2 max: 100.9 cm/sec MV A max zen: 70.2 cm/sec PA V2 mean: 71.4 cm/sec MV E/A: 1.0 PA mean P.3 mmHg Lat Peak E' Zen: 10.8 cm/sec PA pr(Accel): 15.6 mmHg E/E' lat: 6.6 MV dec time: 0.28 sec SV(LVOT): 95.9 ml Reading Physician:09:53 AM
== END ==
PROVIDERS: PCP Student in an Organized Health Care Education/Training Program; Referring Provider Internal Medicine Cardiovascular Disease; Visit Provider Internal Medicine Cardiovascular Disease
DX: R07.89 Other chest pain (principal); R00.2 Palpitations
CPT/HCPCS: 93017

== ENCOUNTER → 2022-01-06 09:41 | Outpatient (CLI) | payer MEDICARE, OTHER, SELFPAY | PROVIDERS: PCP Student in an Organized Health Care Education/Training Program; Referring Provider Internal Medicine Cardiovascular Disease; Visit Provider Internal Medicine Cardiovascular Disease | DX: I31.3 Pericardial effusion (noninflammatory) (principal); R07.9 Chest pain, unspecified | CPT/HCPCS: 93306 ==

== ENCOUNTER → 2022-01-12 11:38 | Outpatient (CLI) | payer MEDICARE, OTHER, SELFPAY ==
[2022-01-12 12:48] LABS: Cholesterol 269 mg/dL (140-199); HDL Cholesterol 72 mg/dL (40-60); LDL Cholesterol Calculated 178 mg/dL (<100); Triglycerides 94 mg/dL (35-150)
== END ==
PROVIDERS: PCP Student in an Organized Health Care Education/Training Program; Referring Provider Internal Medicine Cardiovascular Disease; Visit Provider Internal Medicine Cardiovascular Disease
DX: E78.5 Hyperlipidemia, unspecified (principal)
CPT/HCPCS: 36415; 80061

== ENCOUNTER → 2022-02-28 15:16 | Outpatient (CLI) | payer MEDICARE, OTHER, SELFPAY ==
[2022-02-28 16:05] LABS: BUN Creatinine Ratio 18.1 (6-22); Blood Urea Nitrogen 15 mg/dL (7-17); Calcium 9.3 mg/dL (8.4-10.2); Carbon Dioxide 27 mmol/L (22-32); Chloride 105 mmol/L (98-107); Estimated Glomerular Filt Rate > 60 mL/min (>60); Glucose 89 mg/dL (80-110); HEMOLYSIS < 15 (0-50); Potassium 3.9 mmol/L (3.4-5.1); Sodium 139 mmol/L (137-145)
[2022-02-28 16:33] LABS: TSH w/ Reflex to FT4 2.04 uIU/mL (0.47-4.68)
== END ==
PROVIDERS: PCP Student in an Organized Health Care Education/Training Program; Referring Provider Student in an Organized Health Care Education/Training Program; Visit Provider Student in an Organized Health Care Education/Training Program
DX: Z79.899 Other long term (current) drug therapy (principal); E55.9 Vitamin D deficiency, unspecified; M85.80 Other specified disorders of bone density and structure, unspecified site; K52.839 Microscopic colitis, unspecified; R63.5 Abnormal weight gain
CPT/HCPCS: 36415; 80048; 82306; 84443

== ENCOUNTER → 2022-03-17 15:05 | Outpatient (CLI) | payer MEDICARE, OTHER, SELFPAY | PROVIDERS: PCP Student in an Organized Health Care Education/Training Program; Referring Provider Student in an Organized Health Care Education/Training Program; Visit Provider Student in an Organized Health Care Education/Training Program | DX: Z13.820 Encounter for screening for osteoporosis (principal); Z78.0 Asymptomatic menopausal state; K92.9 Disease of digestive system, unspecified | CPT/HCPCS: 77080; 77081 ==

== ENCOUNTER → 2022-03-30 16:22 | Outpatient (CLI) | payer MEDICARE, OTHER, SELFPAY ==
[2022-03-30 18:19] LABS: Erythrocyte Sedimentation Rate 5 MM/HR (0-20)
[2022-03-30 18:28] LABS: Albumin 4.2 g/dL (3.5-5.0); BUN Creatinine Ratio 14.1 (6-22); Blood Urea Nitrogen 12 mg/dL (7-17); Carbon Dioxide 28 mmol/L (22-32); Chloride 104 mmol/L (98-107); Estimated Glomerular Filt Rate > 60 mL/min (>60); Glucose 89 mg/dL (80-110); HEMOLYSIS < 15 (0-50); Phosphorous 3.3 mg/dL (2.8-4.1); Potassium 3.5 mmol/L (3.4-5.1); Sodium 140 mmol/L (137-145); Uric Acid 5.5 mg/dL (2.5-6.2)
[2022-03-30 18:34] LABS: Rheumatoid Factor < 8.6 IU/mL (<12.0)
[2022-04-01 13:12] LABS: ANA Screen, IFA Negative (.)
== END ==
PROVIDERS: PCP Student in an Organized Health Care Education/Training Program; Referring Provider Orthopaedic Surgery; Visit Provider Orthopaedic Surgery
DX: M16.12 Unilateral primary osteoarthritis, left hip (principal)
CPT/HCPCS: 36415; 80069; 84550; 85651; 86038; 86430

== ENCOUNTER → 2022-05-12 10:41 | Outpatient (CLI) | payer MEDICARE, OTHER, SELFPAY ==
--- NOTE | 2022-05-12 10:42 | DI.CT.S_ITS ---
PROCEDURE: CT LUMBAR SPINE WO CON INDICATIONS: Reassess spinal anatomy prior to surgery TECHNIQUE: Noncontrast 3 mm thick sections acquired from the T12 level to the sacrum. Sagittal and coronal reformats were constructed. For radiation dose reduction, the following was used: automated exposure control. COMPARISON: [facility], CT, CT LUMBAR SPINE WO CON, 04/03/2019, 12:16. FINDINGS: Image quality: Excellent. Bones: There is normal bony alignment. No acute vertebral body compression fractures. No suspicious lytic or blastic bony lesions. No pars defects. There has been discectomy and fusion with good graft incorporation at L3-4 and L4-5. A anterior plate and screw as well as posterior reji and screw instrumentation noted. Posterolateral graft also shows appropriate incorporation. Decompressive laminectomy at L4-5 is widely patent. Sclerotic degenerative endplate changes at L1-2 and L2-3. Otherwise bone mineralization present. T12-L1: Normal L1-L2: Disc space narrowing with left lateral asymmetric disc bulge. No central stenosis. Moderate bilateral foraminal stenosis greater on the left. L2-L3: Disc space narrowing with circumferential disc bulge and hypertrophic facet joints results in moderate central stenosis. Moderate bilateral foraminal stenosis L3-L4: Discectomy and fusion. No central stenosis. Mild bilateral foraminal stenosis L4-L5: Discectomy and fusion. No central stenosis. Moderate right and mild left foraminal stenosis L5-S1: Disc space narrowing circumferential disc bulge present. Mild central stenosis. Moderate left and right foraminal stenosis Soft tissues: No retroperitoneal masses or hematomas. Visualized aorta is normal in caliber. IMPRESSION: 1. Multilevel degenerative disc disease and arthropathy results in varying degrees of central and foraminal stenosis including moderate central stenosis at L2-3 2. L3-4 and L4-5 discectomy and fusion with good graft incorporation and supporting instrumentation. No hardware failure loosening Approved by: Stephen Loo M.D. on 05/12/2022 at 17:01
== END ==
PROVIDERS: PCP Student in an Organized Health Care Education/Training Program; Referring Provider Student in an Organized Health Care Education/Training Program; Visit Provider Student in an Organized Health Care Education/Training Program
DX: M47.816 Spondylosis without myelopathy or radiculopathy, lumbar region (principal); M51.36 Other intervertebral disc degeneration, lumbar region; M48.061 Spinal stenosis, lumbar region without neurogenic claudication; M34.9 Systemic sclerosis, unspecified; Z98.1 Arthrodesis status
CPT/HCPCS: 72131

== ENCOUNTER → 2022-07-13 12:55 | Outpatient (CLI) | payer MEDICARE, OTHER, SELFPAY ==
--- NOTE | 2022-07-13 12:59 | DI.ECHO.S_ITS ---
Interpretation Summary Limited echo: 1) Normal left ventricular thickness, size, wall motion, and systolic function (EF 60-65%). 2) Normal right ventricular size and function. 3) There is a small pericardial effusion noted. There are no echocardiographic or Doppler indications for cardiac tamponade. 4) Compared to the Echo done 01/06/2022, no significant change. Procedure: A two-dimensional transthoracic echocardiogram with color flow and Doppler was performed in limited views only to assess PVCs, pericardial effusion.. The study quality was technically adequate. Comparison is made with the echocardiogram of 01/06/2022. The patient was in sinus bradycardia with heart rates between 55-60 bpm during the exam. Left Ventricle: The left ventricle is normal in size and wall thickness. Left ventricular systolic function appears normal without focal wall motion abnormalities. The ejection fraction is estimated to be 60-65%. Right Ventricle: The right ventricle is normal in size and function. Great Vessels: The IVC is of normal diameter and collapses greater than 50% with a sniff. This suggests a low right atrial pressure of 3 mm Hg. Pericardium/ Pleura There is a small pericardial effusion that is circumferential. There is no pleural effusion. MMode/2D Measurements & Calculations LVIDd: 4.5 cm IVC diam: 1.4 cm LVIDs: 3.0 cm FS: 33.1 % IVSd: 0.76 cm LVPWd: 0.68 cm LV arrieta. diameter/BSA (cm/m^2): 2.7 LV sys. diameter/BSA (cm/m^2): 1.8 Doppler Measurements & Calculations TR max faby: 216.6 cm/sec TR max P.8 mmHg Reading Physician:01:48 PM
== END ==
PROVIDERS: PCP Student in an Organized Health Care Education/Training Program; Referring Provider Internal Medicine Cardiovascular Disease; Visit Provider Internal Medicine Cardiovascular Disease
DX: I31.39 Other pericardial effusion (noninflammatory) (principal); I49.3 Ventricular premature depolarization; Z98.890 Other specified postprocedural states
CPT/HCPCS: 93307

== ENCOUNTER → 2022-07-26 09:24 | Outpatient (CLI) | payer MEDICARE, OTHER, SELFPAY ==
[2022-07-26 10:15] LABS: Cholesterol 187 mg/dL (140-199); HDL Cholesterol 76 mg/dL (40-60); LDL Cholesterol Calculated 95 mg/dL (<100); Triglycerides 81 mg/dL (35-150)
== END ==
PROVIDERS: PCP Student in an Organized Health Care Education/Training Program; Referring Provider Internal Medicine Cardiovascular Disease; Visit Provider Internal Medicine Cardiovascular Disease
DX: E78.5 Hyperlipidemia, unspecified (principal)
CPT/HCPCS: 36415; 80061

== ENCOUNTER → 2022-07-27 14:47 | Outpatient (CLI) | payer MEDICARE, OTHER, SELFPAY | PROVIDERS: PCP Student in an Organized Health Care Education/Training Program; Visit Provider Student in an Organized Health Care Education/Training Program | DX: Z01.810 Encounter for preprocedural cardiovascular examination (principal) | CPT/HCPCS: 87797 ==

== ENCOUNTER → 2022-08-03 15:50 | Outpatient (CLI) | payer MEDICARE, OTHER, SELFPAY ==
[2022-08-03 16:37] LABS: Add Manual Diff / Slide Review NO; Basophils Absolute Auto 0 /uL (0-100); Basophils Percent Auto 0.5 % (0-2); Eosinophils Absolute Auto 0 /uL (0-450); Eosinophils Percent Auto 0.6 % (2-4); Hemoglobin 14.1 g/dL (12.0-16.0); Lymphocytes Absolute Auto 1200 /uL (1100-4500); Lymphocytes Percent Auto 19.3 % (25-40); Mean Corpuscular HGB Conc 33.6 % (30-36); Mean Corpuscular Hemoglobin 31.8 PG (26-34); Mean Corpuscular Volume 94.7 fL (80-100); Monocytes Absolute Auto 700 /uL (0-900); Monocytes Percent Auto 11.1 % (3-14); Neutrophils Absolute Auto 4300 /uL (1500-7000); Neutrophils Percent Auto 68.5 % (50-75); Platelet Count 241 X10^3/uL (150-400); Red Blood Cell Count 4.43 X10^6/uL (4.0-5.2); Red Cell Distribution Width 13.6 % (11.6-14.8); White Blood Cell Count 6.3 X10^3/uL (4.5-11.0)
[2022-08-03 17:49] LABS: Alanine Aminotransferase 14 IU/L (<35); Albumin 4.3 g/dL (3.5-5.0); Albumin Globulin Ratio 1.8 (1.0-2.8); Alkaline Phosphatase 36 U/L (38-126); Aspartate Aminotransferase 16 IU/L (14-36); BUN Creatinine Ratio 13.9 (6-22); Bilirubin Total 0.3 mg/dL (0.2-1.3); Blood Urea Nitrogen 11 mg/dL (7-17); Calcium 9.3 mg/dL (8.4-10.2); Carbon Dioxide 27 mmol/L (22-32); Chloride 102 mmol/L (98-107); Estimated Glomerular Filt Rate > 60 mL/min (>60); Globulin 2.4 g/dL (1.7-4.1); Glucose 91 mg/dL (80-110); HEMOLYSIS < 15 (0-50); Potassium 4.2 mmol/L (3.4-5.1); Sodium 137 mmol/L (137-145); Total Protein 6.7 g/dL (6.3-8.2)
== END ==
PROVIDERS: PCP Student in an Organized Health Care Education/Training Program; Referring Provider Student in an Organized Health Care Education/Training Program; Visit Provider Student in an Organized Health Care Education/Training Program
DX: Z01.810 Encounter for preprocedural cardiovascular examination (principal); Z79.899 Other long term (current) drug therapy; K52.839 Microscopic colitis, unspecified
CPT/HCPCS: 36415; 80053; 85025

== ENCOUNTER → 2022-12-20 07:56 | Outpatient (CLI) | payer MEDICARE, OTHER, SELFPAY ==
[2022-12-20 09:13] LABS: Erythrocyte Sedimentation Rate 6 MM/HR (0-20)
[2022-12-20 09:19] LABS: C-Reactive Protein Quant < 0.5 mg/dL (<1.0)
== END ==
PROVIDERS: PCP Student in an Organized Health Care Education/Training Program; Referring Provider Orthopaedic Surgery; Visit Provider Orthopaedic Surgery
DX: Z96.641 Presence of right artificial hip joint (principal)
CPT/HCPCS: 36415; 85651; 86140

== ENCOUNTER → 2023-01-11 12:23 | Outpatient (CLI) | payer MEDICARE, OTHER, SELFPAY ==
--- NOTE | 2023-01-11 | DI.ECHO.S_ITS ---
[facility] +---------+ [facility] +---------+ : : [address] : [place] : : : : [id number] : : : : Phone: [phone] +---------+ Echocardiogram Report + + :Name: BERNABE MOORE Study Date: 01/11/2023 Height: 65 in : :[facility] ReadingLocation: Weight: 139 lb : : Gender: Female BSA: 1.7 m2 : :: 1950 Age: 72 yrs BP: 128/70 mmHg: :Reason For Study: POSTPROCEDURAL PERICARDIAL WINDOW : :Ordering Physician: ANYI, : :SOLA Performed By: Zakia Cavanaugh : :Referring: SOLA VILLASENOR : + + Interpretation Summary Limited Echo: There is a trivial to small pericardial effusion noted. This is decreased from the prior echo. Procedure: The study quality was technically limited. The study quality was technically adequate. Comparison is made with the echocardiogram of 07/13/2022. The patient was in sinus rhythm with heart rates between 60-65 bpm during the exam. Left Ventricle: The left ventricle is normal in size and wall thickness. The ejection fraction is estimated to be 60-65%. Left ventricular systolic function appears normal without focal wall motion abnormalities. Right Ventricle: The right ventricle grossly appears normal in size with probable normal systolic function. Great Vessels: The IVC is of normal diameter and collapses greater than 50% with a sniff. This suggests a low right atrial pressure of 3 mm Hg. Pericardium/ Pleura There is a trivial to small pericardial effusion noted. There is no pleural effusion. MMode/2D Measurements & Calculations LVIDd: 4.9 cm IVC diam: 1.5 cm LVIDs: 3.2 cm FS: 33.4 % IVSd: 0.63 cm LVPWd: 0.59 cm LV arrieta. diameter/BSA (cm/m^2): 2.9 LV sys. diameter/BSA (cm/m^2): 1.9 Reading Physician:04:15 PM
--- NOTE | 2023-01-11 14:04 | DI.MRI.S_ITS ---
PROCEDURE: MR LUMBAR SPINE WO CON INDICATIONS: Other specified postprocedural states TECHNIQUE: Noncontrast sagittal T1 spin echo and T2 fast echo, sagittal STIR, and T2 fast spin echo through the lumbar spine. In cases with scoliosis, additional coronal T2 fast spin echo may be performed. COMPARISON: None. FINDINGS: Image quality: Excellent. Surgical hardware: Posterior and interbody surgical fusion at L3 through S1, without hardware complication. Alignment and Curvature: Grade 1 retrolisthesis of L2 on L3, stable from prior. Bone Marrow: Marrow is of normal overall signal. No acute vertebral body compression fractures. Spinal Cord: Conus medullaris terminates at the L2 level. Visualized cord demonstrates normal signal and size. Paraspinous Soft Tissues: No paravertebral masses. T12-L1: Normal appearance. L1-L2: Broad-based disc bulge. L2-L3: Retrolisthesis, disc height loss and disc osteophyte complex with ligamentum flavum hypertrophy causes mild spinal canal narrowing, moderate left and mild right neural foraminal narrowing. L3-L4: Interbody fusion. L4-L5: Interbody fusion. L5-S1: Broad-based disc bulge. Mild facet arthrosis. IMPRESSION: Posterior and interbody surgical fusion at L3 through L5, without hardware complication. Retrolisthesis of L2 on L3, with associated disc osteophyte complex and ligamentum flavum hypertrophy causing mild spinal canal narrowing, moderate left and mild right neural foraminal narrowing. Dictated by: Emiliano Dupont M.D. on 01/11/2023 at 16:09 Approved by: Emiliano Dupont M.D. on 01/11/2023 at 16:42
== END ==
PROVIDERS: PCP Student in an Organized Health Care Education/Training Program; Referring Provider Physical Medicine & Rehabilitation Sports Medicine; Visit Provider Physical Medicine & Rehabilitation Sports Medicine
DX: I31.39 Other pericardial effusion (noninflammatory) (principal); M47.26 Other spondylosis with radiculopathy, lumbar region; M43.16 Spondylolisthesis, lumbar region; M48.061 Spinal stenosis, lumbar region without neurogenic claudication; Z98.890 Other specified postprocedural states; Z98.1 Arthrodesis status
CPT/HCPCS: 72148; 93307

== ENCOUNTER → 2023-03-31 13:36 | Outpatient (CLI) | payer MEDICARE, OTHER, SELFPAY ==
[2023-03-31 14:47] LABS: C-Reactive Protein Quant < 0.5 mg/dL (<1.0)
[2023-03-31 15:09] LABS: Erythrocyte Sedimentation Rate 6 MM/HR (0-20)
== END ==
PROVIDERS: Referring Provider Orthopaedic Surgery; Visit Provider Orthopaedic Surgery
DX: Z96.641 Presence of right artificial hip joint (principal)
CPT/HCPCS: 36415; 85651; 86140

== ENCOUNTER 2023-06-12 08:43 | Emergency (ER) | payer MEDICARE, OTHER, SELFPAY ==
[2023-06-12] VITALS (7 sets, daily range): BP systolic 128–171; BP diastolic 63–82; PULSE 62–101; RESP 18; TEMP 36.8; O2SAT 97–100; BMI 22.6
[2023-06-12 09:21] LABS: Add Manual Diff / Slide Review NO; Basophils Absolute Auto 100 /uL (0-100); Eosinophils Absolute Auto 100 /uL (0-450); Eosinophils Percent Auto 1.3 % (2-4); Hematocrit 49.1 % (36-46); Hemoglobin 17.2 g/dL (12.0-16.0); Lymphocytes Absolute Auto 1000 /uL (1100-4500); Lymphocytes Percent Auto 14.1 % (25-40); Mean Corpuscular HGB Conc 34.9 % (30-36); Mean Corpuscular Hemoglobin 33.6 PG (26-34); Mean Corpuscular Volume 96.1 fL (80-100); Monocytes Absolute Auto 400 /uL (0-900); Monocytes Percent Auto 5.9 % (3-14); Neutrophils Absolute Auto 5500 /uL (1500-7000); Neutrophils Percent Auto 76.7 % (50-75); Platelet Count 253 X10^3/uL (150-400); Red Blood Cell Count 5.11 X10^6/uL (4.0-5.2); White Blood Cell Count 7.1 X10^3/uL (4.5-11.0)
[2023-06-12 10:10] LABS: Alanine Aminotransferase 24 IU/L (<35); Albumin 4.3 g/dL (3.5-5.0); Albumin Globulin Ratio 1.5 (1.0-2.8); Alkaline Phosphatase 60 U/L (38-126); Aspartate Aminotransferase 25 IU/L (14-36); BUN Creatinine Ratio 19.1 (6-22); Blood Urea Nitrogen 13 mg/dL (7-17); Carbon Dioxide 20 mmol/L (22-32); Chloride 103 mmol/L (98-107); Estimated Glomerular Filt Rate > 60 mL/min (>60); Globulin 2.8 g/dL (1.7-4.1); Glucose 103 mg/dL (80-110); HEMOLYSIS 18 (0-50); Lipase 114 U/L (23-300); Sodium 137 mmol/L (137-145); Total Protein 7.1 g/dL (6.3-8.2)
[2023-06-12 13:03] LABS: Bacteria Urine Moderate (10-30); Culture Indicated Urine Specimen Cultured; RBC Urine 1-5/HPF (0-5/HPF); Squamous Epithelial Cell Urine 5-10 /HPF (0-5/HPF); WBC Urine 5-10/HPF (0-5/HPF)
--- NOTE | 2023-06-12 13:30 | ED.ABDPAIN ---
HPI - Abdominal Pain General Chief Complaint: Abdominal Pain Stated Complaint: colitus attack T-5 not eating or drinking Time Seen by Provider: 06/12/23 13:17 Source: patient and family Mode of arrival: Ambulatory History of Present Illness HPI narrative: Patient 72-year-old female history of chronic colitis, on budesonide, degenerative disc disease, hyperlipidemia and right hip heterotrophic ossification presenting today with 5 days of ongoing abdominal pain and diarrhea. She says she frequently gets colitis flares she is been taking budesonide 3 times a day to help with her inflammation but she does not think she is getting help with it now. She has had cramping off and on gets very intense she has 10 episodes of diarrhea daily for the last 5 days. This is not a typical flare for her. Her typical flares involved intense pain for 3 days and then resolve. She is not totally sure what caused this flare. This is atypical. She denies any fever or chills. She does get moments of relief which is also we are. But she pretty much has abdominal cramping all across. No nausea or vomiting. She reports that every time she tries to eat or drink anything she has immediate diarrhea. So she is not had anything to eat or drink. She is not dizzy or lightheaded. Related Data Home Medications Medication Instructions Recorded Confirmed magnesium citrate ##0 10/13/17 07/27/22 CHOLECALCIFEROL (VITAMIN D) 4,000 units PO Q DAY ##0 08/08/19 07/27/22 rosuvastatin 5 mg tablet 5 mg PO DAILY 02/28/22 07/27/22 diltiazem HCl 240 mg 240 mg PO BID 07/27/22 07/27/22 capsule,extended release 24 hr flecainide 100 mg tablet 200 mg PO DAILY PVC's 07/27/22 07/27/22 Previous Rx's Medication Instructions Recorded alendronate 70 mg tablet 70 mg PO QWEEK #12 tabs 05/23/22 hyoscyamine sulfate 0.125 mg 0.125 mg sublingual Q4H PRN 08/09/22 disintegrating tablet dyspepsia #30 tabs [biodentical hormones] See Rx Instructions .Route 01/04/23 .COMPLEX #90 mL gabapentin 600 mg tablet 900 mg (1.5 x 600 mg) PO TID #409 01/19/23 tabs budesonide 3 mg 9 mg (3 x 3 mg) PO DAILY #270 ea 04/13/23 capsule,delayed,extended release cephalexin 500 mg capsule 500 mg PO BID 7 days #14 caps 06/12/23 metronidazole 500 mg tablet 500 mg PO Q8H 7 days #21 tabs 06/12/23 Allergies Allergy/AdvReac Type Severity Reaction Status Date / Time Sulfa (Sulfonamide Allergy Unknown Verified 06/12/23 08:58 Antibiotics) [SULFA (SULFONAMIDE ANTIBIOTICS)] NSAIDS (Non-Steroidal AdvReac Intermediate Colitis Verified 06/12/23 08:58 Anti-Inflamma Review of Systems Review of Systems ROS Unobtainable: All systems reviewed & are unremarkable except as noted in HPI and below Patient History Surgical History H/O total hip arthroplasty Status post creation of pericardial window History of lumbar spinal fusion Family History Child Age: 53 Aortic stenosis Father Heart disease Hypertension High cholesterol Mother Heart disease Hypertension Other Diabetes mellitus Metabolic syndrome Social History Smoking Status: Never smoker second hand exposure: No alcohol intake: current substance use type: does not use Smoking Status: Never smoker alcohol intake frequency: a few times a month Substance Use Type: does not use Exam Initial Vital Signs Initial Vital Signs: Vital Signs Temperature 98.3 F 06/12/23 08:49 Pulse Rate 101 H 06/12/23 08:49 Respiratory Rate 18 06/12/23 08:49 Blood Pressure 128/79 06/12/23 08:49 Pulse Oximetry 98 06/12/23 08:49 Oxygen Delivery Method Room Air 06/12/23 08:49 GENERAL: Alert 72-year-old female no acute distress HEENT: Head atraumatic,EOMI, pupils reactive, face symmetric, moist mucous membranes CARDIOVASCULAR: Regular rate and rhythm without murmurs, rubs or gallops. RESPIRATORY: Breath sounds equal bilaterally, no wheezes rales or rhonchi. ABDOMEN: Soft, minimal tenderness no guarding no rebound : No CVA tenderness EXTREMITIES: Normal range of motion, no clubbing or edema. Neurovascularly intact NEUROLOGICAL: Alert and oriented x4.Normal gait and speech SKIN: Warm, dry, no laceration, no petechiae, no rashes or lesions. Course Orders Ordered: ED Orders 06/12/23 08:59 EKG-12 Lead Stat 06/12/23 09:05 Complete Blood Count AUTO DIFF Stat Comprehensive Metabolic Panel Stat Lipase Stat 06/12/23 12:20 Ictotest Urine Stat Urine Culture Stat Urine Microscopic Stat 06/12/23 13:38 CT abdomen pelvis w con Stat Ondansetron HCl (Ondansetron 4 Mg Odt) 4 mg PO NOW PRN PRN Reason: Nausea And Vomiting Ondansetron HCl (Ondansetron 4 Mg/2 Ml Inj) 4 mg IV NOW PRN PRN Reason: Nausea And Vomiting Discontinued Medications Sodium Chloride (Normal Saline 0.9%) 1,000 mls @ 1,000 mls/hr IV BOLUS ONE Stop: 06/12/23 14:37 Last Infusion: 06/12/23 14:39 Dose: Infused Documented By: Admin: 06/12/23 14:05 Dose: 1,000 mls/hr Documented By: MARIAELENA Acetaminophen (Ofirmev) 1,000 mg in 100 mls @ 400 mls/hr IV NOW ONE Stop: 06/12/23 13:52 Last Infusion: 06/12/23 14:38 Dose: Infused Documented By: Admin: 06/12/23 14:05 Dose: 400 mls/hr Documented By: MARIAELENA Vital Signs Vital signs: Vital Signs - 8 hr 06/12/23 08:49 06/12/23 13:57 06/12/23 14:00 Temperature 98.3 F Pulse Rate 101 H 74 71 Respiratory Rate 18 Blood Pressure 128/79 Pulse Oximetry 98 99 99 Oxygen Delivery Method Room Air 06/12/23 14:00 06/12/23 14:01 06/12/23 14:01 Temperature Pulse Rate 76 Respiratory Rate Blood Pressure 171/74 H 145/63 H Pulse Oximetry 100 Oxygen Delivery Method 06/12/23 14:30 06/12/23 14:30 06/12/23 14:46 Temperature Pulse Rate 67 Respiratory Rate Blood Pressure 158/82 H 134/63 Pulse Oximetry 100 Oxygen Delivery Method 06/12/23 14:46 06/12/23 15:00 06/12/23 15:00 Temperature Pulse Rate 66 62 Respiratory Rate Blood Pressure 132/65 Pulse Oximetry 100 97 Oxygen Delivery Method [facility] - Abdominal Pain Lab Data 06/12/23 09:05 06/12/23 09:05 Labs: Lab Results 06/12/23 06/12/23 Range/Units 09:05 12:20 WBC 7.1 (4.5-11.0) X10^3/uL RBC 5.11 (4.0-5.2) X10^6/uL Hgb 17.2 H (12.0-16.0) g/dL Hct 49.1 H (36-46) % MCV 96.1 (80-100) fL MCH 33.6 (26-34) PG MCHC 34.9 (30-36) % RDW 14.0 (11.6-14.8) % Plt Count 253 (150-400) X10^3/uL Neut % (Auto) 76.7 H (50-75) % Lymph % (Auto) 14.1 L (25-40) % Polk % (Auto) 5.9 (3-14) % Eos % (Auto) 1.3 L (2-4) % Baso % (Auto) 2.0 (0-2) % Neut # (Auto) 5500 (2686-3086) /uL Lymph # (Auto) 1000 L (3210-6327) /uL Polk # (Auto) 400 (0-900) /uL Eos # (Auto) 100 (0-450) /uL Baso # (Auto) 100 (0-100) /uL Sodium 137 (137-145) mmol/L Potassium 3.0 L (3.4-5.1) mmol/L Chloride 103 (98-107) mmol/L Carbon Dioxide 20 L (22-32) mmol/L BUN 13 (7-17) mg/dL Creatinine 0.68 (0.52-1.04) mg/dL Estimated GFR > 60 (>60) mL/min BUN/Creatinine Ratio 19.1 (6-22) Glucose 103 (80-110) mg/dL Calcium 10.0 (8.4-10.2) mg/dL Total Bilirubin 1.0 (0.2-1.3) mg/dL AST 25 (14-36) IU/L ALT 24 (<35) IU/L Alkaline Phosphatase 60 (38-126) U/L Total Protein 7.1 (6.3-8.2) g/dL Albumin 4.3 (3.5-5.0) g/dL Globulin 2.8 (1.7-4.1) g/dL Albumin/Globulin Ratio 1.5 (1.0-2.8) Lipase 114 (23-300) U/L Ur Bilirubin Confirm Negative (Negative) Urine RBC 1-5/hpf (0-5/HPF) Urine WBC 5-10/hpf H (0-5/HPF) Ur Squamous Epith Cells 5-10 /hpf H (0-5/HPF) Urine Bacteria Moderate (10-30) H (None) Ur Culture Indicated? Specimen cultured Point of care testing: Urine Dip Bedside Urine Glucose Negative Bedside Urine Bilirubin + 1 Bedside Urine Ketone +++ 80 Urine Specific Allen 1.030 Bedside Urine Occult Blood +++ Bedside Urine pH 6.0 Bedside Urine Protein + 30 Bedside Urine Urobilinogen - Negative Bedside Urine Nitrite - Negative Bedside Urine Leukocytes +/- [address] scan - abdomen/pelvis: Radiologist's Impression: PROCEDURE: CT ABDOMEN PELVIS W CON INDICATIONS: lower ab pain hx colitis TECHNIQUE: After the administration of oral and IV contrast, axial sections were acquired from the lung bases to the pubic symphysis. Coronal and sagittal reformats were performed. For radiation dose reduction, the following was used: automated exposure control, adjustment of mA and/or kV according to patient size. COMPARISON: None. FINDINGS: Image quality: Portions of the abdomen and pelvis are suboptimally evaluated secondary to metallic streak artifact from spinal fusion hardware.. Lung bases: Unremarkable. Heart: No significant findings. ABDOMEN: Liver: Simple hepatic cyst. Gallbladder: Unremarkable. Biliary ducts: Unremarkable. Pancreas: Unremarkable. Spleen: Unremarkable. Adrenal Glands: Unremarkable. Kidneys and Ureters: Unremarkable. Stomach and Bowel: Stomach, small bowel loops, and colon are nonobstructive. There is marked thickening of the descending colon with inflammatory change. Diverticular present. No abscess. Peritoneum: No abnormal intraperitoneal fluid. No free air. Ventral Wall: No hernia. Abdominal Nodes: No retroperitoneal or mesenteric adenopathy by size criteria. Vessels: Aorta and inferior vena cava are normal in size. PELVIS: Pelvic Organs: Unremarkable. Bladder: Unremarkable. Pelvic Nodes: No enlarged lymph nodes. Miscellaneous: No inguinal hernias are seen. Bones: Unremarkable. IMPRESSION: Sigmoid thickening with inflammatory change most suggestive of colitis secondary to diverticulitis. No abscess. Dictated by: Joselin Rausch M.D. on 06/12/2023 at 14:41 Approved by: Joselin Rausch M.D. on 06/12/2023 at 14:4 ECG Data Interpretation: Artifact noted sinus rhythm rate 93 IA interval 104 QRS [address] changes MDM Narrative Medical decision making narrative: 72-year-old female with ongoing colitis presents today with different abdominal pain than her colitis. It has been ongoing for days. No fever or chills but not eating or drinking. Blood work has been reviewed no leukocytosis or anemia mildly hemoconcentrated hemoglobin 17.2 hematocrit 49.1 consistent with probable dehydration, potassium mildly low at 3.0 consistent with diarrhea, creatinine stable at 0.68 BUN [address] concerning for diverticulitis without complication Patient is given a L of fluids he is feeling much better we discussed how she needs to try and stay hydrated. I think reasonable to start her on antibiotics. Patient reports that she does have a history of diverticulitis. They were asking about the budesonide instructed her to taper off and talk to a provider before stopping cold turkey Discharge Plan Departure Patient Disposition: Home Clinical Impression: Diverticulitis Instructions: DI for Diverticulitis Activity Restrictions/Additional Instructions: *You have been diagnosed with diverticulitis *What to do: At this time you do have diverticulitis there is no complication. Antibiotics should start helping the next couple of days. I recommend that you do drink and stay hydrated at this time there is no evidence of dehydration although your potassium is mildly low. I recommend Pedialyte Gatorade Jell-O liquid diet. May advance food as tolerated *Continue to take medications as directed Cipro 500 mg twice a day for 7 days Flagyl 500 mg 3 times a day for 7 days *Follow up with your primary care provider in 2-3 days or call [phone] *Return to ER if you should have increasing pain bloody stools dizziness lightheadedness or any new, worsening or concerning symptoms Prescriptions: New metronidazole 500 mg tablet 500 mg PO Q8H 7 Days Qty: 21 0RF cephalexin 500 mg capsule 500 mg PO BID 7 Days Qty: 14 0RF No Action magnesium citrate 296 ML solution Qty: 0 alendronate 70 mg tablet 70 mg PO QWEEK Qty: 12 3RF hyoscyamine sulfate 0.125 mg tablet,disintegrating 0.125 mg Sublingual Q4H PRN (Reason: dyspepsia) Qty: 30 5RF [biodentical hormones] See Rx Instructions .ROUTE .COMPLEX MDD 2pumps or 1ml daily Qty: 90 1RF Dose Instruction: Apply 2 pumps or 1ml daily ; Rx Instructions: Estradiol 0.5; Testosterone 3mg; Progesterone 50mg within 1ml gabapentin 600 mg tablet 900 mg PO TID Qty: 409 3RF Rx Instructions: Change in script/dosing. Please refill for patient. budesonide 3 mg capsule,delayed,extend.release 9 mg PO DAILY Qty: 270 1RF CHOLECALCIFEROL (VITAMIN D) 4,000 units PO Q DAY Qty: 0 rosuvastatin 5 mg tablet 5 mg PO DAILY flecainide 100 mg tablet 200 mg PO DAILY diltiazem HCl 240 mg capsule,extended release 24hr 240 mg PO BID Referrals: Faisal Pond MD [Primary Care Provider] - Stand Alone Forms: Patient Portal/API
[2023-06-12 13:32] LABS: Ictotest Urine Negative (Negative)
--- NOTE | 2023-06-12 13:38 | DI.CT.S_ITS ---
PROCEDURE: CT ABDOMEN PELVIS W CON INDICATIONS: lower ab pain hx colitis TECHNIQUE: After the administration of oral and IV contrast, axial sections were acquired from the lung bases to the pubic symphysis. Coronal and sagittal reformats were performed. For radiation dose reduction, the following was used: automated exposure control, adjustment of mA and/or kV according to patient size. COMPARISON: None. FINDINGS: Image quality: Portions of the abdomen and pelvis are suboptimally evaluated secondary to metallic streak artifact from spinal fusion hardware.. Lung bases: Unremarkable. Heart: No significant findings. ABDOMEN: Liver: Simple hepatic cyst. Gallbladder: Unremarkable. Biliary ducts: Unremarkable. Pancreas: Unremarkable. Spleen: Unremarkable. Adrenal Glands: Unremarkable. Kidneys and Ureters: Unremarkable. Stomach and Bowel: Stomach, small bowel loops, and colon are nonobstructive. There is marked thickening of the descending colon with inflammatory change. Diverticular present. No abscess. Peritoneum: No abnormal intraperitoneal fluid. No free air. Ventral Wall: No hernia. Abdominal Nodes: No retroperitoneal or mesenteric adenopathy by size criteria. Vessels: Aorta and inferior vena cava are normal in size. PELVIS: Pelvic Organs: Unremarkable. Bladder: Unremarkable. Pelvic Nodes: No enlarged lymph nodes. Miscellaneous: No inguinal hernias are seen. Bones: Unremarkable. IMPRESSION: Sigmoid thickening with inflammatory change most suggestive of colitis secondary to diverticulitis. No abscess. Dictated by: Joselin Rausch M.D. on 06/12/2023 at 14:41 Approved by: Joselin Rausch M.D. on 06/12/2023 at 14:43
[2023-06-12] MEDS: ACETAMINOPHEN IV 1,000 MG/100 ML VIAL 400 MG IV (14:05)
[2023-06-12] MEDS: SODIUM CHLORIDE 0.9% 1,000 ML 1000 ML IV (14:05)
--- NOTE | 2023-06-12 14:10 | PC.NURSE ---
Pt has hx of colitis and states that she had an unknown food trigger after trying a new recipe. pt has had similar episodes in the past but reports that this time if felt worse. Pt reports having a 6/10 pain that she describes as throbbing and cramping.
== END 2023-06-12 15:30 | disposition home or self-care (01) ==
PROVIDERS: Emergency Provider Emergency Medicine; PCP Student in an Organized Health Care Education/Training Program
DX: K57.92 Diverticulitis of intestine, part unspecified, without perforation or abscess without bleeding (principal); R10.9 Unspecified abdominal pain
CPT/HCPCS: 36415; 74177; 80053; 81003; 81015; 83690; 85025; 87086; 93005; 93010; 99284; J0131; Q9967

== ENCOUNTER → 2023-08-30 17:12 | Outpatient (CLI) | payer MEDICARE, OTHER, SELFPAY ==
--- NOTE | 2023-08-30 | DI.MRI.S_ITS ---
PROCEDURE: MR LUMBAR SPINE WO CON INDICATIONS: RADICULOPATHY LUMBAR REGION TECHNIQUE: Noncontrast sagittal T1 spin echo and T2 fast echo, sagittal STIR, and T2 fast spin echo through the lumbar spine. In cases with scoliosis, additional coronal T2 fast spin echo may be performed. COMPARISON: [facility], CT, CT ABDOMEN PELVIS W CON, 06/12/2023, 13:43. [facility], MR, MR LUMBAR SPINE WO CON, 01/11/2023, 14:15. FINDINGS: Image quality: Excellent. Alignment and Curvature: There is normal bony alignment. Posterior lateral reji and pedicle screw fixation at L3 through L5 with bilateral reji and pedicle screw fixation. Mature interbody fusion at these levels. Anterior fusion hardware as well. Left hemilaminectomy at L4-L5. 5 mm retrolisthesis of L2 on L3. Trace retrolisthesis L1 on L2. Bone Marrow: Marrow is of normal overall signal. No acute vertebral body compression fractures. Spinal Cord: Conus medullaris terminates at the L1 level. Visualized cord demonstrates normal signal and size. Paraspinous Soft Tissues: No paravertebral masses. T12-L1: Normal appearance. L1-L2: Chronic disc height loss. Diffuse posterior disc bulge. Facet and ligament hypertrophy. Epidural lipomatosis. Resultant mild canal stenosis, not significantly changed. There is a minimal shallow extruded disc fragment inferior to the disc which is new compared to the previous study. However, it is of doubtful significance, as it does not impinge on nerve root structures. Mild bilateral foraminal narrowing. L2-L3: Chronic disc height loss. Retrolisthesis of L2 on L3. Posterior osteophyte. Prominent facet and ligament hypertrophy. Unchanged [id number] canal stenosis. [id number] right foraminal narrowing. Moderate left foraminal narrowing with mild flattening deformity on the exiting left L2 nerve root. L3-L4: Fused. Expected appearance. No canal stenosis or foraminal stenosis. L4-L5: Fused. Left hemilaminectomy. Expected appearance. No canal stenosis or foraminal stenosis. L5-S1: Minimal disc bulge. Facet hypertrophy. Mild canal stenosis. No significant foraminal stenosis. IMPRESSION: 1. Expected postoperative appearance at L3 through L5 without canal stenosis or foraminal stenosis. 2. Interval development of a small, shallow extruded disc fragment at L1-L2. This disc fragment is of doubtful clinical significance. 3. Otherwise stable findings. 4. Canal stenosis is mild at L1-L2, [id number] at L2-L3, and mild at L5-S1. 5. Multilevel facet arthropathy. 6. There is moderate left foraminal narrowing at L2-L3. Dictated by: Jermain Rincon M.D. on 08/31/2023 at 8:54 Approved by: Jermain Rincon M.D. on 08/31/2023 at 9:09
== END ==
PROVIDERS: PCP Student in an Organized Health Care Education/Training Program; Referring Provider Orthopaedic Surgery Orthopaedic Surgery of the Spine; Visit Provider Orthopaedic Surgery Orthopaedic Surgery of the Spine
DX: M51.16 Intervertebral disc disorders with radiculopathy, lumbar region (principal); M47.26 Other spondylosis with radiculopathy, lumbar region; M47.27 Other spondylosis with radiculopathy, lumbosacral region; M48.061 Spinal stenosis, lumbar region without neurogenic claudication; M61.9 Calcification and ossification of muscle, unspecified; G89.29 Other chronic pain; Z96.641 Presence of right artificial hip joint; Z98.1 Arthrodesis status
CPT/HCPCS: 72148

== ENCOUNTER → 2023-10-31 10:44 | Outpatient (CLI) | payer MEDICARE, OTHER, SELFPAY ==
[2023-10-31 13:10] LABS: Appearance Urine UA CLEAR; Bilirubin Urine UA NEGATIVE (NEGATIVE); Color Urine UA YELLOW; Glucose Urine UA NEGATIVE (Negative); Ketones Urine UA NEGATIVE (NEGATIVE); Leukocyte Esterase Urine UA NEGATIVE (NEGATIVE); Nitrite Urine UA NEGATIVE (Negative); Occult Blood Urine UA NEGATIVE (Negative); Protein Urine UA NEGATIVE (Negative); Urobilinogen Urine UA 0.2 E.U./dL (0.2)
[2023-10-31 13:16] LABS: pH Urine UA 6.5 (4.5-8.0)
[2023-10-31 13:18] LABS: Bacteria Urine Few (2-10); Culture Indicated Urine Cult Not Indicated; RBC Urine None Seen (0-5/HPF); Squamous Epithelial Cell Urine 1-5 /HPF (0-5/HPF); Urine Volume 10mL (spun); WBC Urine 1-5/HPF (0-5/HPF)
== END ==
PROVIDERS: PCP Family Medicine; Referring Provider Family Medicine; Visit Provider Family Medicine
DX: R82.998 Other abnormal findings in urine (principal); R39.9 Unspecified symptoms and signs involving the genitourinary system
CPT/HCPCS: 81001

== ENCOUNTER 2023-12-30 17:32 | Emergency (ER) | payer MEDICARE, OTHER, SELFPAY ==
[2023-12-30 17:36] VITALS: BP 124/61; PULSE 86; RESP 18; TEMP 36.6; O2SAT 100; BMI 21.9
[2023-12-30 17:58] VITALS: PULSE 67; O2SAT 100
[2023-12-30 18:00] VITALS: BP 139/64; PULSE 68; O2SAT 100
[2023-12-30 18:09] LABS: Add Manual Diff / Slide Review NO; Basophils Absolute Auto 0 /uL (0-100); Eosinophils Absolute Auto 100 /uL (0-450); Eosinophils Percent Auto 2.4 % (2-4); Hematocrit 37.9 % (36-46); Hemoglobin 12.7 g/dL (12.0-16.0); Lymphocytes Absolute Auto 800 /uL (1100-4500); Lymphocytes Percent Auto 17.5 % (25-40); Mean Corpuscular HGB Conc 33.6 % (30-36); Mean Corpuscular Hemoglobin 28.5 PG (26-34); Monocytes Absolute Auto 600 /uL (0-900); Monocytes Percent Auto 13.2 % (3-14); Neutrophils Absolute Auto 3000 /uL (1500-7000); Neutrophils Percent Auto 65.9 % (50-75); Platelet Count 421 X10^3/uL (150-400); Red Blood Cell Count 4.45 X10^6/uL (4.0-5.2); Red Cell Distribution Width 13.9 % (11.6-14.8); White Blood Cell Count 4.5 X10^3/uL (4.5-11.0)
[2023-12-30 18:17] LABS: Alanine Aminotransferase 14 IU/L (<35); Albumin 4.3 g/dL (3.5-5.0); Albumin Globulin Ratio 1.9 (1.0-2.8); Alkaline Phosphatase 97 U/L (38-126); Aspartate Aminotransferase 27 IU/L (14-36); BUN Creatinine Ratio 5.3 (6-22); Bilirubin Total 0.5 mg/dL (0.2-1.3); Blood Urea Nitrogen 3 mg/dL (7-17); Calcium 9.4 mg/dL (8.4-10.2); Carbon Dioxide 21 mmol/L (22-32); Chloride 108 mmol/L (98-107); Estimated Glomerular Filt Rate > 60 mL/min (>60); Globulin 2.3 g/dL (1.7-4.1); Glucose 109 mg/dL (80-110); HEMOLYSIS < 15 (0-50); Lipase 88 U/L (23-300); Potassium 3.3 mmol/L (3.4-5.1); Sodium 141 mmol/L (137-145); Total Protein 6.6 g/dL (6.3-8.2)
--- NOTE | 2023-12-30 18:48 | DI.CT.S_ITS ---
PROCEDURE: CT ABDOMEN PELVIS W CON INDICATIONS: hx of diverticulitis worsening on abx TECHNIQUE: After the administration of intravenous contrast, axial sections acquired from the lung bases to the pubic symphysis. Coronal and sagittal reformats were performed. For radiation dose reduction, the following was used: automated exposure control, adjustment of mA and/or kV according to patient size. COMPARISON: [facility], CT, CT ABDOMEN PELVIS W CON, 06/12/2023, 13:43. FINDINGS: Image quality: Diagnostic. Lower Chest: Minor bibasilar atelectasis. Partially imaged breast implants. Small pericardial effusion. ABDOMEN: Liver: Occasional liver cysts. No solid mass visible. Gallbladder: Slightly prominent gallbladder wall without significant wall thickening or calcified stones visible. Biliary ducts: The common duct is at the upper limits of normal measuring 8 mm. Pancreas: No ductal dilation. Spleen: Size is within normal limits. Adrenal Glands: No adrenal nodules. Kidneys and Ureters: No hydronephrosis. No solid mass. No complex renal cystic lesion which requires follow up. Stomach and Bowel: Stomach and small bowel loops are normal caliber. The appendix is normal. Proximal colon is grossly within normal limits. The descending colon beginning at the splenic flexure demonstrates circumferential wall thickening and minor pericolonic inflammation. This continues through the sigmoid colon. Small amount of stool is present in the rectum. No significant rectal wall thickening. No focal diverticula. Peritoneum: No abnormal intraperitoneal fluid. No free air. Ventral Wall: No significant ventral hernia. Abdominal Nodes: No retroperitoneal or mesenteric adenopathy by size criteria. Vessels: Aorta and inferior vena cava are normal in size. PELVIS: Pelvic Organs: Uterus and ovaries are normal. Bladder: No bladder wall thickening, accounting for underdistention. Pelvic Nodes: No enlarged lymph nodes. Miscellaneous: No inguinal hernias are seen. Bones: Right hip arthroplasty changes. Multiple levels surgical change throughout the lumbar spine. IMPRESSION: Findings suggesting infectious or inflammatory distal colitis involving the descending and sigmoid colon. No acute diverticulitis seen. Given recent antibiotic administration, consider C difficile colitis. No abscess formation or perforation. Dictated by: Minerva Hardy M.D. on 12/30/2023 at 19:58 Approved by: Minerva Hardy M.D. on 12/30/2023 at 20:06
--- NOTE | 2023-12-30 19:34 | ED.GENADULT ---
HPI - General Adult General Chief complaint: Abdominal Pain Stated complaint: Severe Back Pain, Diarrhea Time Seen by Provider: 12/30/23 17:58 Source: patient Mode of arrival: Wheelchair History of Present Illness HPI narrative: Patient has a 73-year-old female. Has a history of colitis and also diverticulitis. Five weeks ago underwent a lumbar spinal surgery. Has had 2 weeks of abdominal cramping and loose stools. She contacted her primary doctor. Did not talk with the primary doctor bone of the doctor on-call placed her on Keflex and Flagyl what she has been taking. She states that she is continuing to have liquid stool lower abdominal discomfort. No nausea accept for here in the emergency department. Generally does not feel well. Related Data Home Medications Medication Instructions Recorded Confirmed magnesium citrate ##0 10/13/17 06/16/23 CHOLECALCIFEROL (VITAMIN D) 4,000 units PO Q DAY ##0 08/08/19 06/16/23 rosuvastatin 5 mg tablet 5 mg PO DAILY 02/28/22 06/16/23 diltiazem HCl 240 mg 240 mg PO BID 07/27/22 06/16/23 capsule,extended release 24 hr flecainide 100 mg tablet 200 mg PO DAILY PVC's 07/27/22 06/16/23 Previous Rx's Medication Instructions Recorded hyoscyamine sulfate 0.125 mg 0.125 mg sublingual Q4H PRN 08/09/22 disintegrating tablet dyspepsia #30 tabs budesonide 3 mg 9 mg (3 x 3 mg) PO DAILY #90 caps 06/21/23 capsule,delayed,extended release [biodentical hormones] See Rx Instructions .Route 08/23/23 .COMPLEX #90 mL alendronate 70 mg tablet 70 mg PO QWEEK #12 tabs 09/14/23 oxycodone 5 mg tablet 5 mg PO BID PRN pain #30 tabs 11/13/23 Allergies Allergy/AdvReac Type Severity Reaction Status Date / Time Sulfa (Sulfonamide Allergy Unknown Verified 12/30/23 17:44 Antibiotics) [SULFA (SULFONAMIDE ANTIBIOTICS)] NSAIDS (Non-Steroidal AdvReac Intermediate Colitis Verified 12/30/23 17:44 Anti-Inflamma Review of Systems Constitutional Constitutional: Reports system reviewed and no additional complaints, except as documented Gastrointestinal Gastrointestinal: Reports system reviewed and no additional complaints, except as documented Genitourinary Genitourinary: Reports system reviewed and no additional complaints, except as documented Integumentary/Breasts Skin/Breast: Reports system reviewed and no additional complaints, except as documented Patient History Surgical History H/O total hip arthroplasty Status post creation of pericardial window History of lumbar spinal fusion Family History Child Age: 53 Aortic stenosis Father Heart disease Hypertension High cholesterol Mother Heart disease Hypertension Other Diabetes mellitus Metabolic syndrome Social History Smoking Status: Never smoker second hand exposure: No alcohol intake: current substance use type: does not use Smoking Status: Never smoker alcohol intake frequency: a few times a month Substance Use Type: marijuana Exam Initial Vital Signs Initial Vital Signs: Vital Signs Temperature 97.8 F 12/30/23 17:36 Pulse Rate 86 12/30/23 17:36 Respiratory Rate 18 12/30/23 17:36 Blood Pressure 124/61 12/30/23 17:36 Pulse Oximetry 100 12/30/23 17:36 Oxygen Delivery Method Room Air 12/30/23 17:36 HENMT Head: normal to inspection and normocephalic Resp Effort & Inspection: normal respiratory effort Cardio Rate: regular rate GI Inspection: non-distended Skin General: no rashes or lesions noted Course Orders Ordered: ED Orders 12/30/23 17:44 EKG-12 Lead Stat 12/30/23 17:57 Complete Blood Count AUTO DIFF Stat Comprehensive Metabolic Panel Stat Lipase Stat 12/30/23 18:48 CT abdomen pelvis w con Stat 12/30/23 20:00 GI Panel (Film Array) Stat 12/30/23 20:18 Urine Microscopic Stat Discontinued Medications Sodium Chloride (Normal Saline 0.9%) 1,000 mls @ 1,000 mls/hr IV BOLUS ONE Stop: 12/30/23 20:33 Last Infusion: 12/30/23 21:45 Dose: Infused Documented By: Admin: 12/30/23 19:48 Dose: 1,000 mls/hr Documented By: MARCELLUS Acetaminophen (Ofirmev) 1,000 mg in 100 mls @ 400 mls/hr IV NOW ONE Stop: 12/30/23 21:48 Last Admin: 12/30/23 21:47 Dose: 400 mls/hr Documented By: MARCELLUS Ondansetron HCl (Ondansetron 4 Mg Odt) 4 mg PO NOW PRN PRN Reason: Nausea And Vomiting Ondansetron HCl (Ondansetron 4 Mg/2 Ml Inj) 4 mg IV NOW PRN PRN Reason: Nausea And Vomiting Last Admin: 12/30/23 19:59 Dose: 4 mg Documented By: MARCELLUS Vital Signs Vital signs: Vital Signs - 8 hr 12/30/23 17:36 12/30/23 17:58 12/30/23 18:00 Temperature 97.8 F Pulse Rate 86 67 68 Respiratory Rate 18 Blood Pressure 124/61 Pulse Oximetry 100 100 100 Oxygen Delivery Method Room Air 12/30/23 18:00 12/30/23 22:09 Temperature Pulse Rate 68 Respiratory Rate 16 Blood Pressure 139/64 133/83 Pulse Oximetry 100 Oxygen Delivery Method Room Air Medical Decision Making Lab Data Lab results reviewed: Yes I reviewed the patient's lab results. 12/30/23 17:57 12/30/23 17:57 Labs: Lab Results 12/30/23 12/30/23 12/30/23 Range/Units 17:57 20:00 20:18 WBC 4.5 (4.5-11.0) X10^3/uL RBC 4.45 (4.0-5.2) X10^6/uL Hgb 12.7 (12.0-16.0) g/dL Hct 37.9 (36-46) % MCV 85.0 (80-100) fL MCH 28.5 (26-34) PG MCHC 33.6 (30-36) % RDW 13.9 (11.6-14.8) % Plt Count 421 H (150-400) X10^3/uL Neut % (Auto) 65.9 (50-75) % Lymph % (Auto) 17.5 L (25-40) % [place] % (Auto) 13.2 (3-14) % Eos % (Auto) 2.4 (2-4) % Baso % (Auto) 1.0 (0-2) % Neut # (Auto) 3000 (7201-8542) /uL Lymph # (Auto) 800 L (9438-4728) /uL [place] # (Auto) 600 (0-900) /uL Eos # (Auto) 100 (0-450) /uL Baso # (Auto) 0 (0-100) /uL Sodium 141 (137-145) mmol/L Potassium 3.3 L (3.4-5.1) mmol/L Chloride 108 H (98-107) mmol/L Carbon Dioxide 21 L (22-32) mmol/L BUN 3 L (7-17) mg/dL Creatinine 0.57 (0.52-1.04) mg/dL Estimated GFR > 60 (>60) mL/min BUN/Creatinine Ratio 5.3 L (6-22) Glucose 109 (80-110) mg/dL Calcium 9.4 (8.4-10.2) mg/dL Total Bilirubin 0.5 (0.2-1.3) mg/dL AST 27 (14-36) IU/L ALT 14 (<35) IU/L Alkaline Phosphatase 97 (38-126) U/L Total Protein 6.6 (6.3-8.2) g/dL Albumin 4.3 (3.5-5.0) g/dL Globulin 2.3 (1.7-4.1) g/dL Albumin/Globulin Ratio 1.9 (1.0-2.8) Lipase 88 (23-300) U/L Urine RBC None seen (0-5/HPF) Urine WBC None seen (0-5/HPF) Ur Squamous Epith Cells 0-1 /hpf (0-5/HPF) Urine Bacteria None seen (None) Ur Culture Indicated? Cult not indicated Vol Urine Centrifuged 10ml (spun) Stl C. cayetanensis PCR Not detected (Not Detect) Stool Rotavirus (PCR) Not detected (Not Detect) Stool Adenovirus (PCR) Not detected (Not Detect) Stool Astrovirus (PCR) Not detected (Not Detect) Stool Cryptosporidium PCR Not detected (Not Detect) Stl E.coli Shiga Tox PCR Not detected (Not Detect) St Sh/Enteroin Ecoli PCR Not detected (Not Detect) Stl Enterotoxigenic E PCR Not detected (Not Detect) Stool EPEC (PCR) Not detected (Not Detect) Stl E. histolytica PCR Not detected (Not Detect) Stool Giardia Lamblia PCR Not detected (Not Detect) Stool Sapovirus (PCR) Not detected (Not Detect) Stl P. shigelloides PCR Not detected (Not Detect) St Y.enterocolitica PCR Not detected (Not Detect) Stool Vibrio (PCR) Not detected (Not Detect) Stl Vibrio cholerae PCR Not detected (Not Detect) Stl Enteroaggr Ecoli PCR Not detected (Not Detect) Stl Norovirus GI/GII PCR Not detected (Not Detect) Campylobacter (PCR) Not detected (Not Detect) C. difficile Tox (PCR) Not detected (Not Detect) Salmonella (PCR) Not detected (Not Detect) Urine Dip Bedside Urine Glucose Negative Bedside Urine Bilirubin - Negative Bedside Urine Ketone +++ 80 Urine Specific [place] 1.005 Bedside Urine Occult Blood - Negative Bedside Urine pH 7.5 Bedside Urine Protein - Negative Bedside Urine Urobilinogen - Negative Bedside Urine Nitrite - Negative Bedside Urine Leukocytes - Negative Esterase Point of care testing: Urine Dip Bedside Urine Glucose Negative Bedside Urine Bilirubin - Negative Bedside Urine Ketone +++ 80 Urine Specific [place] 1.005 Bedside Urine Occult Blood - Negative Bedside Urine pH 7.5 Bedside Urine Protein - Negative Bedside Urine Urobilinogen - Negative Bedside Urine Nitrite - Negative Bedside Urine Leukocytes - Negative Esterase Imaging Data CT scan - abdomen/pelvis: Radiologist's Impression: PROCEDURE: CT ABDOMEN PELVIS W CON INDICATIONS: hx of diverticulitis worsening on abx TECHNIQUE: After the administration of intravenous contrast, axial sections acquired from the lung bases to the pubic symphysis. Coronal and sagittal reformats were performed. For radiation dose reduction, the following was used: automated exposure control, adjustment of mA and/or kV according to patient size. COMPARISON: [facility], CT, CT ABDOMEN PELVIS W CON, 06/12/2023, 13:43. FINDINGS: Image quality: Diagnostic. Lower Chest: Minor bibasilar atelectasis. Partially imaged breast implants. Small pericardial effusion. ABDOMEN: Liver: Occasional liver cysts. No solid mass visible. Gallbladder: Slightly prominent gallbladder wall without significant wall thickening or calcified stones visible. Biliary ducts: The common duct is at the upper limits of normal measuring 8 mm. Pancreas: No ductal dilation. Spleen: Size is within normal limits. Adrenal Glands: No adrenal nodules. Kidneys and Ureters: No hydronephrosis. No solid mass. No complex renal cystic lesion which requires follow up. Stomach and Bowel: Stomach and small bowel loops are normal caliber. The appendix is normal. Proximal colon is grossly within normal limits. The descending colon beginning at the splenic flexure demonstrates circumferential wall thickening and minor pericolonic inflammation. This continues through the sigmoid colon. Small amount of stool is present in the rectum. No significant rectal wall thickening. No focal diverticula. Peritoneum: No abnormal intraperitoneal fluid. No free air. Ventral Wall: No significant ventral hernia. Abdominal Nodes: No retroperitoneal or mesenteric adenopathy by size criteria. Vessels: Aorta and inferior vena cava are normal in size. PELVIS: Pelvic Organs: Uterus and ovaries are normal. Bladder: No bladder wall thickening, accounting for underdistention. Pelvic Nodes: No enlarged lymph nodes. Miscellaneous: No inguinal hernias are seen. Bones: Right hip arthroplasty changes. Multiple levels surgical change throughout the lumbar spine. IMPRESSION: Findings suggesting infectious or inflammatory distal colitis involving the descending and sigmoid colon. No acute diverticulitis seen. Given recent antibiotic administration, consider C difficile colitis. No abscess formation or perforation. ECG Data Attestation: I personally reviewed and interpreted this ECG as follows: Interpretation: Sinus rhythm Ventricular rate is 65 Normal axis Normal QRS Normal QTC No ST T wave changes MDM Narrative Medical decision making narrative: Labs are unremarkable. CT scan shows colitis but no signs of diverticulitis. No signs of perforation. No indication for surgical consultation. Stool samples are negative. I recommended that the patient stopped taking the antibiotics as the Flagyl could very well be be causing her symptoms to worsen. No indication for admission to the hospital. She has had colitis in the past. She does have budesonide at home that she can take for the discomfort. Recommended that she contact her primary doctor has a follow-up with Gastroenterology for colonoscopy is appropriate. She was given return precautions. sHe expressed understanding and agreement with plan. Discharge Plan Departure Patient Disposition: Home Clinical Impression: Colitis Instructions: DI for Colitis Activity Restrictions/Additional Instructions: I do recommend that you contact your primary care doctor for a follow-up. You may benefit from a referral to see gastroenterology. You can take the budesonide at home for your abdominal discomfort and I do recommend that you stop taking the antibiotics. Return to the emergency department for new symptoms. Prescriptions: No Action magnesium citrate 296 ML solution Qty: 0 hyoscyamine sulfate 0.125 mg tablet,disintegrating 0.125 mg Sublingual Q4H PRN (Reason: dyspepsia) Qty: 30 5RF budesonide 3 mg capsule,delayed,extend.release 9 mg PO DAILY Qty: 90 0RF [biodentical hormones] See Rx Instructions .ROUTE .COMPLEX MDD 2pumps or 1ml daily Qty: 90 1RF Dose Instruction: Apply 2 pumps or 1ml daily ; Rx Instructions: Estradiol 0.5; Testosterone 3mg; Progesterone 50mg within 1ml alendronate 70 mg tablet 70 mg PO QWEEK Qty: 12 3RF oxycodone 5 mg tablet 5 mg PO BID PRN (Reason: pain) Qty: 30 0RF CHOLECALCIFEROL (VITAMIN D) 4,000 units PO Q DAY Qty: 0 rosuvastatin 5 mg tablet 5 mg PO DAILY flecainide 100 mg tablet 200 mg PO DAILY diltiazem HCl 240 mg capsule,extended release 24hr 240 mg PO BID Referrals: Yumi Juarez DO [Primary Care Provider] - Stand Alone Forms: Patient Portal/API
[2023-12-30] MEDS: SODIUM CHLORIDE 0.9% 1,000 ML 1000 ML IV (19:48)
[2023-12-30] MEDS: ONDANSETRON 4 MG/2 ML INJ IV (19:59)
[2023-12-30 20:44] LABS: Bacteria Urine None Seen; Culture Indicated Urine Cult Not Indicated; RBC Urine None Seen (0-5/HPF); Squamous Epithelial Cell Urine 0-1 /HPF (0-5/HPF); Urine Volume 10mL (spun); WBC Urine None Seen (0-5/HPF)
[2023-12-30 20:59] LABS: Adenovirus F 40/41 Not Detected (Not Detect); Astrovirus Not Detected (Not Detect); Campylobacter Not Detected (Not Detect); Clostridium difficile toxin AB Not Detected (Not Detect); Cryptosporidium Not Detected (Not Detect); Cyclospora cayetanensis Not Detected (Not Detect); Entamoeba histolytica Not Detected (Not Detect); Enteroaggregative E.coli Not Detected (Not Detect); Enteropathogenic E.coli Not Detected (Not Detect); Enterotoxigenic E.coli It/st Not Detected (Not Detect); Giardia lamblia Not Detected (Not Detect); Norovirus GI/GII Not Detected (Not Detect); Plesiomonsa shigelloides Not Detected (Not Detect); Rotavirus A Not Detected (Not Detect); Salmonella Not Detected (Not Detect); Sapovirus Not Detected (Not Detect); Shiga-like toxin-prod E.coli Not Detected (Not Detect); Shigella/Enteroinvasive E.coli Not Detected (Not Detect); Vibrio Not Detected (Not Detect); Vibrio cholerae Not Detected (Not Detect); Yersinia enterocolitica Not Detected (Not Detect)
[2023-12-30] MEDS: ACETAMINOPHEN IV 1,000 MG/100 ML VIAL 400 MG IV (21:47)
[2023-12-30 22:09] VITALS: BP 133/83; PULSE 68; RESP 16; O2SAT 100
== END 2023-12-30 22:11 | disposition home or self-care (01) ==
PROVIDERS: Emergency Medicine; Emergency Provider Emergency Medicine; PCP Family Medicine
DX: K52.9 Noninfective gastroenteritis and colitis, unspecified (principal)
CPT/HCPCS: 36415; 74177; 80053; 81003; 81015; 83690; 85025; 87507; 93005; 96361; 96365; 96375; 99284; J0136; J2405; Q9967

== ENCOUNTER → 2024-02-16 09:26 | Outpatient (CLI) | payer MEDICARE, OTHER, SELFPAY ==
[2024-02-16 10:50] LABS: Hematocrit 34.7 % (36-46); Hemoglobin 11.2 g/dL (12.0-16.0); Mean Corpuscular HGB Conc 32.4 % (30-36); Mean Corpuscular Hemoglobin 26.1 PG (26-34); Mean Corpuscular Volume 80.4 fL (80-100); Platelet Count 258 X10^3/uL (150-400); Red Blood Cell Count 4.32 X10^6/uL (4.0-5.2); Red Cell Distribution Width 15.3 % (11.6-14.8); White Blood Cell Count 5.9 X10^3/uL (4.5-11.0)
[2024-02-16 11:14] LABS: BUN Creatinine Ratio 17.5 (6-22); Blood Urea Nitrogen 14 mg/dL (7-17); Calcium 8.7 mg/dL (8.4-10.2); Carbon Dioxide 26 mmol/L (22-32); Chloride 105 mmol/L (98-107); Cholesterol 173 mg/dL (140-199); Estimated Glomerular Filt Rate > 60 mL/min (>60); Glucose 92 mg/dL (80-110); HDL Cholesterol 69 mg/dL (40-60); HEMOLYSIS < 15 (0-50); LDL Cholesterol Calculated 84 mg/dL (<100); Potassium 4.2 mmol/L (3.4-5.1); Sodium 138 mmol/L (137-145); Triglycerides 98 mg/dL (35-150)
== END ==
PROVIDERS: PCP Family Medicine; Referring Provider Internal Medicine Cardiovascular Disease; Visit Provider Internal Medicine Cardiovascular Disease
DX: E78.5 Hyperlipidemia, unspecified (principal); I49.3 Ventricular premature depolarization
CPT/HCPCS: 36415; 80048; 80061; 85027

== ENCOUNTER → 2024-08-25 12:41 | Outpatient (CLI) | payer MEDICARE, OTHER, SELFPAY ==
--- NOTE | 2024-08-25 | DI.MRI.S_ITS ---
PROCEDURE: MR LUMBAR SPINE WO CON INDICATIONS: S/P SPINAL FUSION,CHRONIC MIDLINE LOW BACK PAIN TECHNIQUE: Noncontrast sagittal T1 spin echo and T2 fast echo, sagittal STIR, and T2 fast spin echo through the lumbar spine. In cases with scoliosis, additional coronal T2 fast spin echo may be performed. COMPARISON: [facility], , MR LUMBAR SPINE WO CON, 08/30/2023, 17:31. FINDINGS: Alignment and Curvature: There is normal bony alignment. Bone Marrow: Interval posterior decompression and L1-2 discectomy and fusion with revision large posterior reji and screw construct. There is new posterior decompression at L1-2 and L2-3 with persistent decompression at L4-5. Anterior plate and screw instrumentation L3-4 and L4-5. Spinal Cord: Conus medullaris terminates at the L1 level. Visualized cord demonstrates normal signal and size. Paraspinous Soft Tissues: No paravertebral masses. T12-L1: Normal appearance. L1-L2: Discectomy and fusion. No central stenosis. Mild left and no right foraminal stenosis L2-L3: Discectomy and fusion with posterior decompression. No central stenosis. No foraminal stenosis L3-L4: Discectomy and fusion. No central stenosis. No foraminal stenosis L4-L5: Discectomy fusion with excellent graft incorporation and anterior instrumentation. Posterior decompression without central stenosis. No foraminal stenosis. L5-S1: Disc bulge and hypertrophic arthropathy. Mild central stenosis. Moderate bilateral foraminal stenosis IMPRESSION: Interval L1-2 discectomy and fusion with upper lumbar spine decompression and revised large posterior reji and screw construct Approved by: Stephen Loo M.D. on 08/26/2024 at 12:00
--- NOTE | 2024-08-25 | DI.CT.S_ITS ---
PROCEDURE: CT LUMBAR SPINE WO CON INDICATIONS: S/P SPINAL FUSION,CHRONIC MIDLINE LOW BACK PAIN TECHNIQUE: Noncontrast 3 mm thick sections acquired from the T12 level to the sacrum. Sagittal and coronal reformats were constructed. For radiation dose reduction, the following was used: automated exposure control. COMPARISON: [facility], CT, CT LUMBAR SPINE WO CON, 05/12/2022, 11:37. FINDINGS: Image quality: Excellent. Bones: There is normal bony alignment. L1 through L5 posterior spinal fixation. Anterior fixation at T3 and T4. Multilevel discectomy changes. L2-L3 decompression changes. No significant osseous central canal or neural foraminal stenosis, this can be better evaluated by MRI. Redemonstration of degenerative changes. Decreased osseous mineralization. No acute vertebral body compression fractures. No suspicious lytic or blastic bony lesions. No pars defects. Soft tissues: No retroperitoneal masses or hematomas. Visualized aorta is normal in caliber. Atherosclerotic vascular calcifications. Diverticulosis within the visualized colon without evidence acute diverticulitis. IMPRESSION: Multilevel degenerative changes of the lumbar spine status post extension of hardware, now spanning L1 through L5. No findings concerning for hardware complication. Dictated by: Caden Cordova M.D. on 08/25/2024 at 16:48 Approved by: Caden Cordova M.D. on 08/25/2024 at 16:52
== END ==
PROVIDERS: PCP Family Medicine; Referring Provider Orthopaedic Surgery; Visit Provider Orthopaedic Surgery
DX: M54.50 Low back pain, unspecified (principal); Z98.1 Arthrodesis status; G89.29 Other chronic pain; M51.379 Other intervertebral disc degeneration, lumbosacral region without mention of lumbar back pain or lower extremity pain; M48.07 Spinal stenosis, lumbosacral region; M47.817 Spondylosis without myelopathy or radiculopathy, lumbosacral region
CPT/HCPCS: 72131; 72148

== ENCOUNTER → 2024-10-16 13:10 | Outpatient (CLI) | payer MEDICARE, OTHER, SELFPAY ==
[2024-10-16 15:53] LABS: Vitamin B12 > 1000 pg/mL (239-931)
== END ==
PROVIDERS: PCP Family Medicine; Referring Provider Physician Assistant; Visit Provider Physician Assistant
DX: G62.9 Polyneuropathy, unspecified (principal)
CPT/HCPCS: 36415; 82607

== ENCOUNTER → 2025-01-02 09:40 | Outpatient (CLI) | payer MEDICARE, OTHER, SELFPAY | PROVIDERS: Family Provider Family Medicine; PCP Family Medicine; Referring Provider Family Medicine; Visit Provider Family Medicine | DX: G57.93 Unspecified mononeuropathy of bilateral lower limbs (principal) | CPT/HCPCS: 95886; 95912 ==

== ENCOUNTER → 2025-02-24 09:32 | Outpatient (CLI) | payer MEDICARE, OTHER, SELFPAY ==
[2025-02-24 10:35] LABS: Hematocrit 40.1 % (36-46); Hemoglobin 13.0 g/dL (12.0-16.0); Mean Corpuscular HGB Conc 32.5 % (30-36); Mean Corpuscular Hemoglobin 27.1 PG (26-34); Mean Corpuscular Volume 83.4 fL (80-100); Platelet Count 239 X10^3/uL (150-400)
[2025-02-24 10:47] LABS: Blood Urea Nitrogen 13 mg/dL (7-17); Calcium 9.8 mg/dL (8.4-10.2); Carbon Dioxide 26 mmol/L (22-32); Chloride 105 mmol/L (98-107); Estimated Glomerular Filt Rate > 60 mL/min (>60); Glucose 87 mg/dL (70-99); HEMOLYSIS < 15 (0-50); Potassium 4.1 mmol/L (3.4-5.1); Sodium 139 mmol/L (137-145)
== END ==
PROVIDERS: Family Provider Family Medicine; PCP Family Medicine; Referring Provider Internal Medicine Cardiovascular Disease; Visit Provider Internal Medicine Cardiovascular Disease
DX: I49.3 Ventricular premature depolarization (principal)
CPT/HCPCS: 36415; 80048; 85027